=== PATIENT | male | born 1990 | race Caucasian/White ===

== ENCOUNTER 2020-03-03 11:43 | Emergency (ER) | payer SELFPAY ==
[2020-03-03 11:52] VITALS: BP 137/94; PULSE 99; RESP 20; TEMP 36.4; O2SAT 100; BMI 42.5
--- NOTE | 2020-03-03 11:57 | XR_ITS ---
WS: [id number] Left femur and thigh, AP and lateral views, 03/03/2020 Clinical Data: injury Comparison: None. Findings: No fractures or dislocations are seen. The soft tissues are normal. The visualized knee shows no abno rmalities. The left hip is not remarkable. XR/XR femur LT min 2V* [id number] Impression: Negative left femur and thigh.
--- NOTE | 2020-03-03 12:43 | W.ED.EXTPRO ---
HPI - Extremity Problem General: Chief complaint: Extremity Injury, Lower Stated complaint: LEFT LEG INJURY/INNER THIGH Time Seen by Provider: 03/03/20 12:27 Source: patient Mode of arrival: ambulatory Limitations: no limitations History of Present Illness: HPI Narrative: 29 yo male patient presents to ER c/o left thigh and hip pain. States he was using a wood splitter and it hit him in the leg. Pt ambulates but states the pressure hurts his thigh. Pt denies any other pain trauma or injury MD Complaint: extremity pain Onset (ago): hour(s) (1) Pain Consistency: constant Location: left Quality: sharp Radiation: distal Relieving factors: immobilization Exacerbating factors: walking Associated symptoms: Reports no associated symptoms; Deny chest pain, fever(s) or rash Review of Systems Const: Denies: fever(s) or chills Card: Denies: chest pain Resp: Denies: dyspnea GI: Denies: abdominal pain : Denies: flank pain Musc: Reports: extremity pain Skin/Breast: Denies: rash Neuro: Denies: headache(s) or numbness in extremities Psych: Denies: anxiety, suicidal ideation or homicidal ideation Physical Exam Const: COMMON NORMALS: no acute distress, patient oriented x3 and no limitations GENERAL APPEARANCE: cooperative HENMT: COMMON NORMALS: normocephalic and atraumatic HEAD & SCALP: normocephalic and atraumatic Neck/C-Spine: COMMON NORMALS: full ROM Chest: COMMONS NORMALS: normal inspection of the chest Resp: COMMON NORMALS: normal respiratory effort, No retractions and No use of accessory muscles Cardio: COMMON NORMALS: regular rate and regular rhythm RATE: regular rate RHYTHM: regular rhythm : COMMON NORMALS: Yes no CVA tenderness BLADDER/KIDNEY EXAM: Yes no CVA tenderness Back/Pelvis: COMMON NORMALS: no CVA tenderness, thoracic and lumbar spine normal to inspection, no thoracic nor lumbar tenderness and thoraco-lumbar ROM normal Extremity: COMMON NORMALS: normal to inspection and capillary refill normal GENERAL: Yes weight-bearing difficulty LEFT LOWER EXTREMITY: Yes hip joint and Yes upper leg Neuro: COMMON NORMALS: patient oriented x3 Psych: COMMON NORMALS: mental status grossly normal Skin: COMMON NORMALS: no rashes or lesions noted GENERAL SKIN EXAM: no rashes or lesions noted Course Vital Signs: Vital signs: Vital Signs Temperature 97.5 F L 03/03/20 11:52 Pulse Rate 99 03/03/20 11:52 Respiratory Rate 20 H 03/03/20 11:52 Blood Pressure 137/94 03/03/20 11:52 Pulse Oximetry 100 03/03/20 11:52 MDM - Extremity (Nontraumatic) MDM Narrative: Medical decision making narrative: Pt is well appearing non toxic and in no acute distress xray does not reveal any acute or concerning findings. Pt is able to ambulate just hurts to walk he states. Pt is NVI distally. Pt was given Toradol while here. There is no physical trauma noted to the left lower ext. I will send patient home with crutches, return precautions and home care Discharge Plan Discharge Patient Disposition: Home Clinical Impression: Contusion Qualifiers: Encounter type: initial encounter Contusion area: lower leg Laterality: left Qualified Code(s): S80.12XA - Contusion of left lower leg, initial encounter Condition: Stable Discharge Orders: Discharge Order (Routine); Ordered 03/03/20 Ordered By: Shasha Welsh Discharge Diet: Advance as tolerated Discharge Activity: Increase activity as tolerated Activity Restrictions/Additional Instructions: Return to ER with worsening pain, numbness or tingling or any other concerning findings Use crutches as need Rest, ice and elevate extremity Coding Level of Care Code ED Group Burner Machine for Ashtyn Arriaga Exam Comprehensive
[2020-03-03] MEDS: ketorolac 60 mg/2 mL INJ IM (12:52)
== END 2020-03-03 13:01 | disposition home or self-care (01) ==
PROVIDERS: Emergency Provider Registered Nurse
DX: S80.12XA Contusion of left lower leg, initial encounter (principal); W22.8XXA Striking against or struck by other objects, initial encounter
CPT/HCPCS: 12345; 73552; 96372; 99281; 99283; E0114; J1885

== ENCOUNTER → 2022-01-26 14:19 | Outpatient (BNVA) | payer OTHER, SELFPAY | PROVIDERS: Visit Provider Family Medicine Adult Medicine | DX: S99.919A Unspecified injury of unspecified ankle, initial encounter (principal); X50.9XXA Other and unspecified overexertion or strenuous movements or postures, initial encounter; M25.471 Effusion, right ankle; M77.31 Calcaneal spur, right foot | CPT/HCPCS: 73610 ==

== ENCOUNTER 2023-01-30 20:08 | Emergency (ER) | payer BC, MEDICAID, SELFPAY ==
[2023-01-30 20:14] VITALS: BP 168/119; PULSE 84; RESP 21; TEMP 36.6; O2SAT 100; BMI 40.8
[2023-01-30 20:34] LABS: Basophils % 0.3 %; Eosinophils # 0.2 10^3/uL (0.0-0.8); Eosinophils % 1.8 %; Hematocrit 46.3 % (37-53); Lymphocytes # 3.6 10^3/uL (0.8-4.8); Lymphocytes % 31.6 %; Mean Corpuscular HGB Conc 34.3 g/dL (30-55); Mean Corpuscular Hemoglobin 29.2 pg (27-33); Mean Platelet Volume 10.2 fL (7.4-10.4); Monocytes % 8.5 %; Neutrophils # 6.56 10^3/uL (1.8-7.7); Neutrophils % 57.6 %; Nucleated Red Blood Cells % 0 %; Platelet Count 305 10^3/cmm (157-399); Red Blood Count 5.45 10^6/uL (3.85-5.65); Red Cell Distribution Width 12.5 % (12.1-15.1); White Blood Count 11.36 10^3/uL (3.29-11.43)
[2023-01-30 20:53] LABS: Alanine Aminotransferase 31 U/L (0-41); Alkaline Phosphatase 84 U/L (40-130); Anion Gap 15.3 (5-19); Aspartate Amino Transferase 21 U/L (0-40); Blood Urea Nitrogen 19 mg/dL (6-20); Calcium 9.4 mg/dL (8.5-10.5); Carbon Dioxide 27 mmol/L (22-29); Chloride 102 mmol/L (98-107); Globulin 2.6 g/dL (1.3-4.6); Glucose 111 mg/dL (65-115); Lipase 34 U/L (13-60); Osmolality Calculated 293 mOsm/kg (285-295); Potassium 4.3 mmol/L (3.5-5.1); Sodium 140 mmol/L (136-145); Total Bilirubin 0.9 mg/dL (0.15-1.2); Total Protein 7.6 g/dL (6.6-8.7)
--- NOTE | 2023-01-30 21:48 | W.ED.ABDPA2 ---
HPI - Abdominal Pain General: Chief Complaint: Abdominal Pain Stated Complaint: abdomin pain in abdomin/lower back Time Seen by Provider: 01/30/23 21:48 History of Present Illness: 32-year-old male patient comes in today for complaints of right flank pain radiating into the lower abdomen. Patient reports pain started on Friday. Patient denies any fever. Patient reports some nausea without vomiting. Patient appears nontoxic. Patient appears in mild to moderate pain. Associated Symptoms: Reports nausea; Denies constipation, diarrhea, fever(s) and vomiting Review of Systems General: Reports: 10 or more systems reviewed and unremarkable except in HPI and below Const: Denies: fever(s) GI: Reports: abdominal pain and nausea; Denies: vomiting, diarrhea or constipation : Reports: flank pain PFS ED PFSH: Medical History (Updated 01/31/23 @ 00:05 by ANIVAL Yee) Right ankle strain Physical Exam Const: COMMON NORMALS: alert HENMT: COMMON NORMALS: normocephalic HEAD & SCALP: normocephalic Neck/C-Spine: COMMON NORMALS: full ROM Resp: COMMON NORMALS: normal respiratory effort and clear to auscultation bilaterally AUSCULTATION: clear to auscultation bilaterally Cardio: COMMON NORMALS: regular rate and regular rhythm RATE: regular rate RHYTHM: regular rhythm GI: AUSCULTATION: Yes Hypoactive bowel sounds present PALPATION: Yes Tenderness to palpation present (GI) (Generalized) : BLADDER/KIDNEY EXAM: Yes CVA tenderness on the right Back/Pelvis: GENERAL BACK: Yes CVA tenderness Extremity: COMMON NORMALS: normal to inspection Neuro: SENSORIUM/ORIENTATION: Yes alert Skin: COMMON NORMALS: turgor normal GENERAL SKIN EXAM: turgor normal Course Vital Signs: Vital signs: Vital Signs Temperature 97.9 F 01/30/23 20:14 Pulse Rate 84 01/30/23 20:14 Respiratory Rate 21 H 01/30/23 20:14 Blood Pressure 168/119 01/30/23 20:14 Pulse Oximetry 100 01/30/23 20:14 Oxygen Delivery Me thod Room Air 01/30/23 20:14 MDM - Abdominal Pain Medical Decision Making 32-year-old male patient comes in today for complaints of right flank pain radiating into the lower abdomen. On exam patient has some CVA tenderness to percussion of the right flank. Abdomen has some generalized tenderness. Bowel sounds hypoactive. Vital signs are normal. Differential diagnosis includes renal calculi, urinary tract infection, pyelonephritis, appendicitis, gastroenteritis, constipation, gallbladder disease. CBC and CMP were unremarkable except for some mild elevation in creatinine of 1.3. CT of the abdomen and pelvis noted some appendicoliths without surrounding fat stranding to suggest appendicitis. Patient has had no vomiting or fever. Patient's abdominal pain is generalized. At this time I do not believe patient has an appendicitis but reviewed with patient need to return for fever or persistent nausea and vomiting which will be more indicative of an acute appendicitis if this is an early appendicitis. Patient reported understanding of plan. At this time I recommended patient drink plenty of water and fluids and follow-up with primary care or return to the ER for worsening symptoms. Lab Data 01/30/23 20:27 01/30/23 20:27 Labs/Radiology: Radiology Impressions Abdomen/Pelvis CT 01/30/23 21:52 IMPRESSION: 1. No bowel obstruction or inflammatory process associated with the bowel. 2. No free air or significant free fluid in the abdomen or pelvis. 3. The appendix images normally. 4. Chronically enlarged appendix with 2 appendicolith but no adjacent fat stranding to suggest acute appendicitis. 5. No hydronephrosis or renal calculus. No stone in the bladder. Laboratory Results WBC 11.36 10^3/uL (3.29-11.43) 01/30/23 20:27 RBC 5.45 10^6/uL (3.85-5.65) 01/30/23 20: Hgb 15.90 g/dL (11.27-16.99) 01/30/23 20: Hct 46.3 % (37-53) 01/30/23 20: MCV 85.0 fl (82-101) 01/30/23 20: MCH 29.2 pg (27-33) 01/30/23 20: MCHC 34.3 g/dL (30-55) 01/30/23 20: RDW 12.5 % (12.1-15.1) 01/30/23 20: Plt Count 305 10^3/cmm (157-399) 01/30/23 20: MPV 10.2 fL (7.4-10.4) 01/30/23 20: Neut % (Auto) 57.6 % 01/30/23 20: Lymph % (Auto) 31.6 % 01/30/23 20: [place] % (Auto) 8.5 % 01/30/23 20: Eos % (Auto) 1.8 % 01/30/23 20: Baso % (Auto) 0.3 % 01/30/23: Neut # (Auto) 6.56 10^3/uL (1.8-7.7) 01/30/23 20: Lymph # (Auto) 3.6 10^3/uL (0.8-4.8) 01/30/23 20: [place] # (Auto) 1.0 10^3/uL (0.2-0.9) H 01/30/23 20: Eos # (Auto) 0.2 10^3/uL (0.0-0.8) 01/30/23: Baso # (Auto) 0.0 10^3/uL (0.0-0.1) 01/30/23 20: Nucleated RBC % (auto) 0 % 01/30/23: Nucleated RBCs # 0.0 /100WBC 01/30/23 20: Sodium 140 mmol/L (136-145) 01/30/23 20: Potassium 4.3 mmol/L (3.5-5.1) 01/30/23 20: Chloride 102 mmol/L (98-107) 01/30/23: Carbon Dioxide 27 mmol/L (22-29) 01/30/23 20: Anion Gap 15.3 (5-19) 01/30/23 20: BUN 19 mg/dL (6-20) 01/30/23 20: Creatinine 1.3 mg/dL (0.7-1.2) H 01/30/23 20: GFR Calculation 64.0 mL/min (90-130) L 01/30/23 20: Glucose 111 mg/dL (65-115) 01/30/23 20: Calculated Osmolality 293 mOsm/kg (285-295) 01/30/23: Calcium 9.4 mg/dL (8.5-10.5) 01/30/23 20: Total Bilirubin 0.9 mg/dL (0.15-1.2) 01/30/23 20: AST 21 U/L (0-40) 01/30/23 20: ALT 31 U/L (0-41) 01/30/23 20: Alkaline Phosphatase 84 U/L (40-130) 01/30/23 20: Total Protein 7.6 g/dL (6.6-8.7) 01/30/23: Albumin 5.0 g/dL (3.5-5.2) 01/30/23: Globulin 2.6 g/dL (1.3-4.6) 01/30/23: Lipase 34 U/L (13-60) 01/30/23 20: Urine Color Yellow (Yellow) 01/30/23 22:00 Urine Appearance Clear (CLEAR) 01/30/23 22:00 Urine pH 5 (5-7) 01/30/23 22:00 Ur Specific [place] 1.025 (1.005-1.030) 01/30/23 22:00 Urine Protein Trace (Negative) 01/30/23 22:00 Urine Glucose (UA) Norm (Normal) 01/30/23 22:00 Urine Ketones Negative (Negative) 01/30/23 22:00 Urine Blood Neg (Negative) 01/30/23 22:00 Urine Nitrate Negative (Negative) 01/30/23 22:00 Urine Bilirubin Neg (Negative) 01/30/23 22:00 Urine Urobilinogen Neg mg/dL (Negative) 01/30/23 22:00 Ur Leukocyte Esterase Negative (Negative) 01/30/23 22:00 Urine RBC None /hpf (0-2) 01/30/23 22:00 Urine WBC None /hpf (0-5) 01/30/23 22:00 Ur Squamous Epith Cells None /hpf (0-5) 01/30/23 22:00 Amorphous Sediment Not Reportable 01/30/23 22:00 Urine Bacteria Trace /hpf (NONE) 01/30/23 22:00 Urine Mucus 2+ /hpf 01/30/23 22:00 All radiology interpretation(s) finalized by discharge Discharge Plan Discharge Patient Disposition: Home Clinical Impression: Abdominal pain Qualifiers: Abdominal location: generalized Qualified Code(s): R10.84 - Generalized abdominal pain Condition: Stable Prescriptions: No Action celecoxib 200 mg capsule 200 mg PO BID Qty: 30 1RF Discharge Orders: Discharge ED (Routine); Ordered 01/31/23 Ordered By: Jovanni Lemus Referrals: Grabiel Edmond DO [Primary Care Provider] - Discharge Diet: Usual diet Discharge Activity: Increase activity as tolerated Patient Instructions: Abdominal Pain (ED) Activity Restrictions/Additional Instructions: Home and rest. Drink plenty of water and fluids. Use acetaminophen and/or ibuprofen as needed for pain. Use ice or heat for further pain relief. Follow-up with primary care for persistent symptoms. Return to ED for worsening symptoms such as fever greater than 100.4, inability to hold fluids down, blood in vomit or stool. Coding Level of Care Code ED Director Medical Science for Ashtyn Arriaga
--- NOTE | 2023-01-30 21:52 | CTR_ITS ---
PROCEDURE INFORMATION: Exam: CT Abdomen And Pelvis Without Contrast Exam date and time: 01/30/2023 10:14 PM Age: 32 years old Clinical indication: Abdominal pain; Flank; Patient HX: Patient says abd pain started Friday with luq pain but now the pain is anterior umbilical region and it wraps around to right side, PT is clamny and pacing with pain; Additional info: Right flank pain TECHNIQUE: Imaging protocol: Computed tomography of the abdomen and pelvis without contrast. Radiation optimization: All CT scans at this facility use at least one of these dose optimization techniques: automated exposure control; mA and/or kV adjustment per patient size (includes targeted exams where dose is matched to clinical indication); or iterative reconstruction. REPORTING DATA: Count of CT and Cardiac NM exams in prior 12 months: This patient has received 0 known CTs and 0 known cardiac nuclear medicine studies in the 12 months prior to the current study. COMPARISON: CT abdomen pelvis w con* [id number] 03/11/2017 3:16 PM RADIATION DOSE METRICS: Total DLP (mGy-cm): 1412.63 FINDINGS: Liver: Normal. No mass. Gallbladder and bile ducts: Normal. No calcified stones. No ductal dilation. Pancreas: Normal. No ductal dilation. Spleen: Normal. No splenomegaly. Adrenal glands: Normal. No mass. Kidneys and ureters: Normal. No hydronephrosis. Stomach and bowel: Unremarkable. No obstruction. No mucosal thickening. Appendix: The appendix is enlarged measuring up to 12 mm with 2 appendicolith at the base measuring up to 7 mm. However, there is absolutely no fat stranding adjacent to the appendix and this is thought likely to be normal for this patient. Furthermore, reviewing the abdominal CT from 03/11/2017 demonstrates that the patient has a appendix measured up to 11 mm at that time. Intraperitoneal space: Unremarkable. No free air. No significant fluid collection. Vasculature: Unremarkable. No abdominal aortic aneurysm. Lymph nodes: Unremarkable. No enlarged lymph nodes. Urinary bladder: Unremarkable as visualized. Reproductive: Unremarkable as visualized. Bones/joints: Unremarkable. No acute fracture. Soft tissues: Unremarkable. CT/CT kidney stone [id number] IMPRESSION: 1. No bowel obstruction or inflammatory process associated with the bowel. 2. No free air or significant free fluid in the abdomen or pelvis. 3. The appendix images normally. 4. Chronically enlarged appendix with 2 appendicolith but no adjacent fat stranding to suggest acute appendicitis. 5. No hydronephrosis or renal calculus. No stone in the bladder.
[2023-01-30] MEDS: ketorolac 30 mg/mL INJ 15 MG IVP (22:05)
[2023-01-30] MEDS: ondansetron 2 mg/ML SDV 2 mL 4 MG IVP (22:06)
[2023-01-30 22:27] LABS: Add Urine Microscopic? YES; Bilirubin Urine Neg (Negative); Blood Urine Neg (Negative); Glucose Urine UA Norm (Normal); Ketones Urine Negative (Negative); Leukocyte Esterase Urine Negative (Negative); Nitrate Urine Negative (Negative); Protein Urine Trace (Negative); Specific Gravity, Urine 1.025 (1.005-1.030); Urine Appearance Clear (CLEAR); Urine Color Yellow (Yellow); Urobilinogen Urine Neg (Negative); pH Urine 5 (5-7)
[2023-01-30 22:28] LABS: Add Urine Culture? No; Bacteria Urine TRACE /hpf; Mucus Urine 2+ /hpf
[2023-01-31] MEDS: HYDROcodone-acetaminophen 5-325 mg Tablet 1 TAB PO (00:26)
[2023-01-31 00:30] VITALS: BP 143/84; PULSE 76; RESP 18; O2SAT 98
== END 2023-01-31 00:32 | disposition home or self-care (01) ==
PROVIDERS: Emergency Provider Nurse Practitioner Family; PCP Electrodiagnostic Medicine
DX: R10.84 Generalized abdominal pain (principal)
CPT/HCPCS: 36415; 74176; 80053; 81001; 83690; 85025; 96374; 96375; 99285; J1885; J2405

== ENCOUNTER 2023-02-12 12:42 | Emergency (ER) | payer BC, MEDICAID, SELFPAY ==
[2023-02-12 12:47] VITALS: BP 157/91; PULSE 86; RESP 18; TEMP 36.8; O2SAT 99; BMI 41.1
--- NOTE | 2023-02-12 13:06 | W.ED.ABDPA2 ---
HPI - Abdominal Pain General: Chief Complaint: Abdominal Pain Stated Complaint: BC sent for possible appy Time Seen by Provider: 02/12/23 13:00 Source: patient Mode of arrival: ambulatory Limitations: no limitations History of Present Illness: Patient is a 32-year-old male presents to ED today with complaint of abdominal pain. Patient states several weeks ago he began having abdominal pain. He was seen here in the emergency department earlier this month (01/30) and had a CT scan at that time which showed: CT/CT kidney stone [id number] IMPRESSION: 1. ? No bowel obstruction or inflammatory process associated with the bowel. 2. ? No free air or significant free fluid in the abdomen or pelvis. 3. ? The appendix images normally. 4. ? Chronically enlarged appendix with 2 appendicolith but no adjacent fat stranding to suggest acute appendicitis. 5. ? No hydronephrosis or renal calculus. No stone in the bladder. Patient states since that time he has continued to have waxing and waning abdominal pains (always present just with exacerbations of pain). Feels like pain moves around his abdomen. He reports nausea worse with eating. He states bowel movements have alternated between constipation and diarrhea. No fevers. He reportedly was seen at [facility] earlier today and referred to the emergency department with concerns for appendicitis. MD elicited complaint: abdominal pain Pertinent past history: none Onset (ago): week(s) Pain Consistency: intermittent Location: Periumbilical and RLQ Severity: moderate Quality: sharp Radiation: none Migration to: no migration Exacerbating factors: eating (makes nausea worse-pain unaffected ) Relieving factors: nothing Associated Symptoms: Reports constipation, diarrhea and nausea; Denies chills, dysuria, fever(s), hematochezia, hematemesis, melena and vomiting Review of Systems Const: Denies: fever(s), chills, body aches, fatigue or malaise Card: Denies: chest pain Resp: Denies: dyspnea GI: Reports: abdominal pain, nausea, diarrhea and constipation; Denies: vomiting, hematemesis, rectal pain, hematochezia or melena : Denies: flank pain, difficulty urinating, dysuria, urinary frequency, urinary urgency or urinary hesitancy Musc: Denies: neck pain, back pain, extremity pain or joint pain Skin/Breast: Denies: rash Neuro: Denies: headache(s), numbness in extremities, sensory changes or dizziness PFSH ED PFSH: Medical History Right ankle strain Physical Exam Const: COMMON NORMALS: no acute distress, patient oriented x3, no limitations and alert GENERAL APPEARANCE: cooperative NUTRITIONAL APPEARANCE: obese (BMI of 41) ORIENTATION/CONSCIOUSNESS: Yes awake, Yes oriented to person, Yes oriented to place and Yes oriented to time Eye: COMMON NORMALS: no scleral icterus Resp: COMMON NORMALS: normal respiratory effort and clear to auscultation bilaterally AUSCULTATION: clear to auscultation bilaterally Cardio: COMMON NORMALS: regular rate and regular rhythm RATE: regular rate RHYTHM: regular rhythm GI: COMMON NORMALS: Normal to inspection, nondistended, normoactive bowel sounds present, Soft to palpation and no masses INSPECTION: Yes normal to inspection AUSCULTATION: Yes normoactive bowel sounds PALPATION: Yes Soft to palpation, Yes Tenderness to palpation present (GI) (throughout abdomen but max tenderness to periumbilical/RLQ), No Guarding due to palpation present (GI) and No Rigid due to palpation : COMMON NORMALS: Yes no CVA tenderness BLADDER/KIDNEY EXAM: Yes no CVA tenderness Back/Pelvis: COMMON NORMALS: no CVA tenderness Extremity: COMMON NORMALS: normal to inspection GENERAL: Yes normal exam except as noted Neuro: COMMON NORMALS: patient oriented x3, moves all extremities, no focal motor deficits and no sensory deficits noted SENSORIUM/ORIENTATION: Yes alert, Yes oriented to person, Yes oriented to place and Yes oriented to time Skin: COMMON NORMALS: no rashes or lesions noted GENERAL SKIN EXAM: no rashes or lesions noted Course Vital Signs: Vital signs: Vital Signs Temperature 98.3 F 02/12/23 12:47 Pulse Rate 86 02/12/23 12:47 Respiratory Rate 18 02/12/23 13:28 Blood Pressure 129/89 02/12/23 13:24 Pulse Oximetry 99 02/12/23 12:47 Oxygen Delivery Me thod Room Air 02/12/23 12:47 MDM - Abdominal Pain Medical Decision Making Patient CT scan showing a normal appendix. Small appendicoliths are reidentified. There still was no adjacent inflammation to suggest appendicitis. Radiologist stated appendix is less distended as compared to 01/30. Remainder of CT scan was essentially unremarkable. I do not have a clear etiology into patient's symptoms at this time. He has follow-up with primary care next week. We will also place referral with general surgery for further evaluation. We will give him pain/nausea medications he can use in the interim Lab Data 02/12/23 13:18 02/12/23 13:18 Labs/Radiology: Laboratory Results WBC 8.71 10^3/uL (3.29-11.43) 02/12/23 13:18 RBC 5.15 10^6/uL (3.85-5.65) 02/12/23 13:18 Hgb 15.30 g/dL (11.27-16.99) 02/12/23 13:18 Hct 44.9 % (37-53) 02/12/23 13:18 MCV 87.2 fl (82-101) 02/12/23 13:18 MCH 29.7 pg (27-33) 02/12/23 13:18 MCHC 34.1 g/dL (30-55) 02/12/23 13:18 RDW 12.7 % (12.1-15.1) 02/12/23 13:18 Plt Count 290 10^3/cmm (157-399) 02/12/23 13:18 MPV 10.1 fL (7.4-10.4) 02/12/23 13:18 Neut % (Auto) 53.1 % 02/12/23 13:18 Lymph % (Auto) 36.6 % 02/12/23 13:18 [place] % (Auto) 8.4 % 02/12/23 13:18 Eos % (Auto) 1.4 % 02/12/23 13:18 Baso % (Auto) 0.3 % 02/12/23 13:18 Neut # (Auto) 4.62 10^3/uL (1.8-7.7) 02/12/23 13:18 Lymph # (Auto) 3.2 10^3/uL (0.8-4.8) 02/12/23 13:18 [place] # (Auto) 0.7 10^3/uL (0.2-0.9) 02/12/23 13:18 Eos # (Auto) 0.1 10^3/uL (0.0-0.8) 02/12/23 13:18 Baso # (Auto) 0.0 10^3/uL (0.0-0.1) 02/12/23 13:18 Nucleated RBC % (auto) 0 % 02/12/23 13:18 Nucleated RBCs # 0.0 /100WBC 02/12/23 13:18 Sodium 142 mmol/L (136-145) 02/12/23 13:18 Potassium 3.9 mmol/L (3.5-5.1) 02/12/23 13:18 Chloride 104 mmol/L (98-107) 02/12/23 13:18 Carbon Dioxide 26 mmol/L (22-29) 02/12/23 13:18 Anion Gap 15.9 (5-19) 02/12/23 13:18 BUN 13 mg/dL (6-20) 02/12/23 13:18 Creatinine 0.9 mg/dL (0.7-1.2) 02/12/23 13:18 GFR Calculation 97.8 mL/min (90-130) 02/12/23 13:18 Glucose 93 mg/dL (65-115) 02/12/23 13:18 Calculated Osmolality 294 mOsm/kg (285-295) 02/12/23 13:18 Calcium 9.3 mg/dL (8.5-10.5) 02/12/23 13:18 Total Bilirubin 0.5 mg/dL (0.15-1.2) 02/12/23 13:18 AST 16 U/L (0-40) 02/12/23 13:18 ALT 21 U/L (0-41) 02/12/23 13:18 Alkaline Phosphatase 78 U/L (40-130) 02/12/23 13:18 Total Protein 7.1 g/dL (6.6-8.7) 02/12/23 13:18 Albumin 5.0 g/dL (3.5-5.2) 02/12/23 13:18 Globulin 2.1 g/dL (1.3-4.6) 02/12/23 13:18 Lipase 29 U/L (13-60) 02/12/23 13:18 All radiology interpretation(s) finalized by discharge Discharge Plan Discharge Patient Disposition: Home Clinical Impression: Abdominal pain of unknown cause Condition: Stable Prescriptions: New hydrocodone-acetaminophen 5-325 mg tablet 1 tab PO Q6H PRN (Reason: pain) Qty: 14 0RF ondansetron 4 mg tablet,disintegrating 4 mg PO Q8H PRN (Reason: nausea and vomiting) Qty: 14 0RF No Action celecoxib 200 mg capsule 200 mg PO BID Qty: 30 1RF Discharge Orders: Discharge ED (Routine); Ordered 02/12/23 Ordered By: Verna Garcia Referrals: Grabiel Edmond DO [Primary Care Provider] - Patient Instructions: Abdominal Pain (ED), Opioid Safety, Pain Management Activity Restrictions/Additional Instructions: As we discussed your labs or CT scan did not show a clear etiology for your abdominal discomfort. Please follow-up with your primary care provider at your scheduled appointment. I have placed a referral with case management to try to get you set up with general surgery for further evaluation. I have written you for a small amount of pain/nausea medications that you may take if needed. As we discussed please return to the emergency department for worsening or severe abdominal pains, repetitive episodes of vomiting or diarrhea, any blood in your vomit or stools, fevers greater than 100.4, generally feeling worse or unwell, or any other concerns you may have. Coding Level of Care Code ED Art Framing Manager for Ashtyn Arriaga
--- NOTE | 2023-02-12 13:12 | CT_ITS ---
WS: [id number] CT ABDOMEN AND PELVIS WITH CONTRAST HISTORY: diffuse ab pain, mainly RLQ TECHNIQUE: Imaging performed of the abdomen and pelvis with IV contrast. Single phase imaging of the abdomen. Coronal and sagittal reformats are submitted. All CT scans at [facility] use at [facility] one of these dose optimization techniques: automated exposure control; mA and/or kV adjustment per patient size (includes targeted exams where dose is matched to clinical indication); or iterative re construction. IV CONTRAST: Omnipaque 350; 100 mL IV. Oral contrast: No DLP: 1294.43 mGy.cm COMPARISON: 01/30/2023 Lower thorax: Lung bases are clear. Heart is normal size. No hiatal hernia. Liver/biliary system: Normal size with no intrahepatic dilatation. Gallbladder: Normal. No gallstones or wall thickening. No pericholecystic fluid. Pancreas: Normal size pancreas and pancreatic duct. No adjacent inflammation. Spleen: Normal size spleen. No mass or infarct. Adrenal glands: Normal. Right kidney: Normal. Left kidney: Normal. Aorta: Normal. Lymphadenopathy: There are few very small central mesenteric lymph nodes. Free fluid: None. GI tract: Unremarkable. Normal appendix. No obstruction. Abdominal wall: Unremarkable abdominal wall. No hernia. Pelvis: No free fluid or adenopathy within the pelvis. Bones: Unremarkable. IMPRESSION: 1. Normal appendix. Small appendicoliths are reidentified. There is no adjacent inflammation or appe ndicitis at this time. Appendix is less distended as compared to 01/30/2023. 2. No renal obstruction. 3. No colitis or GI tract obstruction. 4. There are very few small central mesenteric lymph nodes that were present also on the prior study from 01/30/2023 and 03/11/2017.
[2023-02-12] MEDS: iohexol 350 mg/mL 500 mL Btl (per mL) IV (13:22)
[2023-02-12 13:24] VITALS: BP 129/89
[2023-02-12 13:25] LABS: Basophils % 0.3 %; Eosinophils # 0.1 10^3/uL (0.0-0.8); Eosinophils % 1.4 %; Hematocrit 44.9 % (37-53); Lymphocytes # 3.2 10^3/uL (0.8-4.8); Lymphocytes % 36.6 %; Mean Corpuscular HGB Conc 34.1 g/dL (30-55); Mean Corpuscular Hemoglobin 29.7 pg (27-33); Mean Corpuscular Volume 87.2 fl (82-101); Mean Platelet Volume 10.1 fL (7.4-10.4); Monocytes # 0.7 10^3/uL (0.2-0.9); Monocytes % 8.4 %; Neutrophils # 4.62 10^3/uL (1.8-7.7); Neutrophils % 53.1 %; Nucleated Red Blood Cells % 0 %; Platelet Count 290 10^3/cmm (157-399); Red Blood Count 5.15 10^6/uL (3.85-5.65); Red Cell Distribution Width 12.7 % (12.1-15.1); White Blood Count 8.71 10^3/uL (3.29-11.43)
[2023-02-12 13:28] VITALS: RESP 18
[2023-02-12] MEDS: sodium chloride 0.9% 1,000 ML 999 ML IV (13:28)
[2023-02-12] MEDS: morphine 4 mg/mL SDV 1 mL IVP (13:28)
[2023-02-12] MEDS: ondansetron 2 mg/ML SDV 2 mL 4 MG IVP (13:28)
[2023-02-12 14:02] LABS: Alanine Aminotransferase 21 U/L (0-41); Alkaline Phosphatase 78 U/L (40-130); Anion Gap 15.9 (5-19); Aspartate Amino Transferase 16 U/L (0-40); Blood Urea Nitrogen 13 mg/dL (6-20); Calcium 9.3 mg/dL (8.5-10.5); Carbon Dioxide 26 mmol/L (22-29); Chloride 104 mmol/L (98-107); Globulin 2.1 g/dL (1.3-4.6); Glomerular Filtration Rate 97.8 mL/min (90-130); Glucose 93 mg/dL (65-115); Lipase 29 U/L (13-60); Osmolality Calculated 294 mOsm/kg (285-295); Potassium 3.9 mmol/L (3.5-5.1); Sodium 142 mmol/L (136-145); Total Bilirubin 0.5 mg/dL (0.15-1.2); Total Protein 7.1 g/dL (6.6-8.7)
[2023-02-12 14:36] VITALS: BP 156/90; RESP 18; TEMP 36.6; O2SAT 98
--- NOTE | 2023-02-12 14:39 | DCPLANNER ---
Message sent to Gen Surg for follow up - Worsening Abdominal pain, N/V
== END 2023-02-12 14:43 | disposition home or self-care (01) ==
PROVIDERS: Emergency Medicine; Emergency Provider Physician Assistant; PCP Electrodiagnostic Medicine
DX: R10.31 Right lower quadrant pain (principal)
CPT/HCPCS: 74177; 80053; 83690; 85025; 96374; 96375; 99285; J2270; J2405; J7030

== ENCOUNTER 2023-02-15 13:42 | Emergency (ER) | payer BC, MEDICAID, SELFPAY ==
[2023-02-15 14:05] VITALS: BP 145/91; PULSE 89; RESP 18; TEMP 36.9; O2SAT 97; BMI 5916.9
[2023-02-15 14:07] VITALS: BP 145/91; PULSE 90; RESP 18; O2SAT 100
--- NOTE | 2023-02-15 14:17 | W.ED.ABDPA2 ---
HPI - Abdominal Pain General: Chief Complaint: Abdominal Pain Stated Complaint: abd pain Time Seen by Provider: 02/15/23 14:16 History of Present Illness: 32-year-old male presents to the emergency department with complaints of right upper quadrant abdominal pain. He states he was seen by the general surgeon Dr. Pepper on 02/13/23 and was advised that he needed to receive an ultrasound to rule out cholecystitis. The patient since that time is stated that this morning he started having 10 out of 10 pain that is worse after he eats. He states he has been taking the medications that were prescribed to him by Dr. Pepper but could not tolerate the pain anymore and has also had several episodes of nausea and vomiting. He states the pain is a intermittent pain that is worse after he eats and that has not changed over the previous 1 month. Associated Symptoms: Reports nausea and vomiting Review of Systems General: Reports: 10 or more systems reviewed and unremarkable except in HPI and below GI: Reports: abdominal pain, nausea and vomiting [facility] ED PFSH: Medical History Right ankle strain Social History Smoking and tobacco/nicotine status: light tobacco/nicotine user smokeless tobacco Quit status (tobacco/nicotine): has quit using Physical Exam Const: COMMON NORMALS: no acute distress, average body habitus, patient oriented x3 and alert HENMT: COMMON NORMALS: normocephalic, Normal nasal mucous membranes and turbinates present and moist oral mucous membranes HEAD & SCALP: normocephalic NOSE: Normal nasal mucous membranes and turbinates present Eye: COMMON NORMALS: Equal, round and reactive pupils present and EOMs intact bilaterally PUPIL: Yes Equal, round and reactive pupils present Neck/C-Spine: COMMON NORMALS: full ROM, no lymphadenopathy and supple Resp: COMMON NORMALS: normal respiratory effort and clear to auscultation bilaterally AUSCULTATION: clear to auscultation bilaterally Cardio: COMMON NORMALS: regular rate, regular rhythm, S1 normal heart sound present, S2 normal heart sound present and Peripheral pulses 2+ throughout RATE: regular rate RHYTHM: regular rhythm HEART SOUNDS: S1 normal heart sound present and S2 normal heart sound present PERIPHERAL PULSES: Peripheral pulses 2+ throughout GI: COMMON NORMALS: Soft to palpation INSPECTION: Yes normal to inspection, No Abdominal wall edema and No Fluid wave present AUSCULTATION: Yes normoactive bowel sounds PALPATION: Yes Soft to palpation and Yes Tenderness to palpation present (GI) Details: RUQ PERCUSSION: no fluid wave : COMMON NORMALS: Yes no CVA tenderness BLADDER/KIDNEY EXAM: Yes no CVA tenderness Back/Pelvis: COMMON NORMALS: no CVA tenderness and thoracic and lumbar spine normal to inspection Extremity: COMMON NORMALS: normal to inspection, full ROM and capillary refill normal Neuro: COMMON NORMALS: patient oriented x3 and moves all extremities SENSORIUM/ORIENTATION: Yes alert Psych: COMMON NORMALS: mental status grossly normal, Normal thought process present and cooperative THOUGHT PROCESS: Normal thought process present Skin: COMMON NORMALS: no rashes or lesions noted GENERAL SKIN EXAM: no rashes or lesions noted Course Vital Signs: Vital signs: Vital Signs Temperature 98 F 02/15/23 16:04 Pulse Rate 90 02/15/23 16:04 Respiratory Rate 18 02/15/23 16:04 Blood Pressure 148/76 02/15/23 16:04 Pulse Oximetry 100 02/15/23 14:07 Oxygen Delivery Me thod Room Air 02/15/23 14:07 MDM - Abdominal Pain Medical Decision Making Physical exam completed and documented, I reviewed Dr. Pepper's previous note and his plan of care. Given the patient's presentation with worsening right upper quadrant abdominal pain I will repeat the patient's laboratory evaluation to include a CBC, CMP and a lipase as well as order the planned ultrasound and will treat accordingly. Medical Records I reviewed the patient's medical records. Lab Data I reviewed the patient's lab results. 02/15/23 15:22 02/15/23 15:22 Labs/Radiology: Radiology Impressions Gallbladder Ultrasound 02/15/23 14:29 IMPRESSION: 1. Normal gallbladder. No biliary dilation. 2. Hepatic steatosis. Laboratory Results WBC 10.37 10^3/uL (3.29-11.43) 02/15/23 15:22 RBC 4.96 10^6/uL (3.85-5.65) 02/15/23 15:22 Hgb 14.70 g/dL (11.27-16.99) 02/15/23 15:22 Hct 43.7 % (37-53) 02/15/23 15:22 MCV 88.1 fl (82-101) 02/15/23 15: MCH 29.6 pg (27-33) 02/15/23 15: MCHC 33.6 g/dL (30-55) 02/15/23 15:22 RDW 12.4 % (12.1-15.1) 02/15/23 15:22 Plt Count 293 10^3/cmm (157-399) 02/15/23 15: MPV 10.2 fL (7.4-10.4) 02/15/23 15:22 Neut % (Auto) 65.1 % 02/15/23 15:22 Lymph % (Auto) 28.5 % 02/15/23 15:22 [place] % (Auto) 5.4 % 02/15/23 15: Eos % (Auto) 0.6 % 02/15/23 15: Baso % (Auto) 0.2 % 02/15/23 15: Neut # (Auto) 6.75 10^3/uL (1.8-7.7) 02/15/23 15:22 Lymph # (Auto) 3.0 10^3/uL (0.8-4.8) 02/15/23 15:22 [place] # (Auto) 0.6 10^3/uL (0.2-0.9) 02/15/23 15:22 Eos # (Auto) 0.1 10^3/uL (0.0-0.8) 02/15/23 15:22 Baso # (Auto) 0.0 10^3/uL (0.0-0.1) 02/15/23 15: Nucleated RBC % (auto) 0 % 02/15/23 15: Nucleated RBCs # 0.0 /100WBC 02/15/23 15:22 Sodium 140 mmol/L (136-145) 02/15/23 15:22 Potassium 3.7 mmol/L (3.5-5.1) 02/15/23 15:22 Chloride 103 mmol/L (98-107) 02/15/23 15:22 Carbon Dioxide 28 mmol/L (22-29) 02/15/23 15:22 Anion Gap 12.7 (5-19) 02/15/23 15:22 BUN 12 mg/dL (6-20) 02/15/23 15:22 Creatinine 1.1 mg/dL (0.7-1.2) 02/15/23 15:22 GFR Calculation 77.6 mL/min (90-130) L 02/15/23 15:22 Glucose 92 mg/dL (65-115) 02/15/23 15:22 Calculated Osmolality 289 mOsm/kg (285-295) 02/15/23 15:22 Calcium 9.0 mg/dL (8.5-10.5) 02/15/23 15:22 Total Bilirubin 0.7 mg/dL (0.15-1.2) 02/15/23 15:22 AST 13 U/L (0-40) 02/15/23 15:22 ALT 20 U/L (0-41) 02/15/23 15:22 Alkaline Phosphatase 77 U/L (40-130) 02/15/23 15:22 Total Protein 6.8 g/dL (6.6-8.7) 02/15/23 15:22 Albumin 4.5 g/dL (3.5-5.2) 02/15/23 15:22 Globulin 2.3 g/dL (1.3-4.6) 02/15/23 15:22 Lipase 28 U/L (13-60) 02/15/23 15:22 All radiology interpretation(s) finalized by discharge ED provider radiology interpretation(s): US ABD: FINDINGS: Liver: There is diffuse increased echogenicity of the liver parenchyma and attenuation of sound in the deep portions of the liver obscuring fine hepatic detail, consistent with fatty infiltration. No focal liver abnormality is visible. Gallbladder: The gallbladder is normal. There are no stones. There is no wall thickening or pericholecystic fluid. Information regarding sonographic Carl sign was not provided. Biliary ducts: The common bile duct is nondilated measuring 3 mm. Pancreas: There is limited evaluation of the pancreas due to overlying bowel gas. Right kidney: The right kidney is unremarkable. Portal venous: The main portal vein is patent. US/US gall bladder [id number] IMPRESSION: 1. ? Normal gallbladder. No biliary dilation. 2. ? Hepatic steatosis. Discharge Plan Discharge Patient Disposition: Home Clinical Impression: Abdominal pain of unknown cause Condition: Stable Prescriptions: No Action celecoxib 200 mg capsule 200 mg PO BID Qty: 30 1RF lamotrigine [Lamictal] 200 mg tablet 200 mg PO DAILY amoxicillin 875 mg tablet 875 mg PO Q12H 10 Days Qty: 20 0RF pantoprazole [Protonix] 40 mg tablet,delayed release (DR/EC) 40 mg PO BID 42 Days Qty: 84 1RF hydrocodone-acetaminophen 5-325 mg tablet 1 tab PO Q6H PRN (Reason: pain) Qty: 14 0RF ondansetron 4 mg tablet,disintegrating 4 mg PO Q8H PRN (Reason: nausea and vomiting) Qty: 14 0RF Discharge Orders: Discharge ED (Routine); Ordered 02/15/23 Ordered By: Yakov Lee Referrals: Grabiel Edmond DO [Primary Care Provider] - Discharge Diet: Advance as tolerated Discharge Activity: Resume usual activity Patient Instructions: Abdominal Pain (ED) Coding Level of Care Code ED 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
--- NOTE | 2023-02-15 14:29 | USR_ITS ---
PROCEDURE INFORMATION: Exam: US Abdomen, Limited; Right Upper Quadrant Exam date and time: 02/15/2023 2:45 PM Age: 32 years old Clinical indication: Abdominal pain; Generalized; Additional info: Ruq abd pain TECHNIQUE: Imaging protocol: Real time ultrasound of the abdomen with image documentation. Limited exam focused on the right upper quadrant. COMPARISON: CT abdomen pelvis w con* [id number] 02/12/2023 1:36 PM FINDINGS: Liver: There is diffuse increased echogenicity of the liver parenchyma and attenuation of sound in the deep portions of the liver obscuring fine hepatic detail, consistent with fatty infiltration. No focal liver abnormality is visible. Gallbladder: The gallbladder is normal. There are no stones. There is no wall thickening or pericholecystic fluid. Information regarding sonographic Carl sign was not provided. Biliary ducts: The common bile duct is nondilated measuring 3 mm. Pancreas: There is limited evaluation of the pancreas due to overlying bowel gas. Right kidney: The right kidney is unremarkable. Portal venous: The main portal vein is patent. US/US gall bladder [id number] IMPRESSION: 1. Normal gallbladder. No biliary dilation. 2. Hepatic steatosis.
[2023-02-15 15:27] LABS: Basophils % 0.2 %; Eosinophils # 0.1 10^3/uL (0.0-0.8); Eosinophils % 0.6 %; Hematocrit 43.7 % (37-53); Lymphocytes % 28.5 %; Mean Corpuscular HGB Conc 33.6 g/dL (30-55); Mean Corpuscular Hemoglobin 29.6 pg (27-33); Mean Corpuscular Volume 88.1 fl (82-101); Mean Platelet Volume 10.2 fL (7.4-10.4); Monocytes # 0.6 10^3/uL (0.2-0.9); Monocytes % 5.4 %; Neutrophils # 6.75 10^3/uL (1.8-7.7); Neutrophils % 65.1 %; Nucleated Red Blood Cells % 0 %; Platelet Count 293 10^3/cmm (157-399); Red Blood Count 4.96 10^6/uL (3.85-5.65); Red Cell Distribution Width 12.4 % (12.1-15.1); White Blood Count 10.37 10^3/uL (3.29-11.43)
[2023-02-15 15:55] LABS: Alanine Aminotransferase 20 U/L (0-41); Albumin Level 4.5 g/dL (3.5-5.2); Alkaline Phosphatase 77 U/L (40-130); Anion Gap 12.7 (5-19); Aspartate Amino Transferase 13 U/L (0-40); Blood Urea Nitrogen 12 mg/dL (6-20); Carbon Dioxide 28 mmol/L (22-29); Chloride 103 mmol/L (98-107); Globulin 2.3 g/dL (1.3-4.6); Glomerular Filtration Rate 77.6 mL/min (90-130); Glucose 92 mg/dL (65-115); Lipase 28 U/L (13-60); Osmolality Calculated 289 mOsm/kg (285-295); Potassium 3.7 mmol/L (3.5-5.1); Sodium 140 mmol/L (136-145); Total Bilirubin 0.7 mg/dL (0.15-1.2); Total Protein 6.8 g/dL (6.6-8.7)
[2023-02-15 16:04] VITALS: BP 148/76; PULSE 90; RESP 18; TEMP 36.6
== END 2023-02-15 16:06 | disposition home or self-care (01) ==
PROVIDERS: Emergency Provider Internal Medicine; PCP Electrodiagnostic Medicine
DX: R10.11 Right upper quadrant pain (principal); F17.220 Nicotine dependence, chewing tobacco, uncomplicated
CPT/HCPCS: 36415; 76705; 80053; 83690; 85025; 99284

== ENCOUNTER 2023-11-07 18:35 | Emergency (ER) | payer BC, MEDICAID, SELFPAY ==
--- NOTE | 2023-11-07 18:36 | ECG_ITS ---
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 Measurements Intervals [place] Rate: 88 P: 35 ME: 150 QRS: 6 QRSD: 95 T: 32 QT: 332 QTc: 402 Interpretive Statements SINUS RHYTHM No previous ECG available for comparison Electronically Signed On 11-07-2023 22:41:39 CDT by Maxi Skelton M.D. [id number] f
[2023-11-07 18:37] VITALS: BP 167/107; PULSE 92; RESP 16; TEMP 36.7; O2SAT 98
--- NOTE | 2023-11-07 18:49 | XRR_ITS ---
PROCEDURE INFORMATION: Exam: XR Chest Exam date and time: 11/07/2023 6:57 PM Age: 33 years old Clinical indication: Pain; Chest pressure; Additional info: Chest pain TECHNIQUE: Imaging protocol: Radiologic exam of the chest. Views: 1 view. COMPARISON: CT abdomen pelvis w con* [id number] 02/12/2023 1:36 PM FINDINGS: Lungs: Unremarkable. No consolidation. Pleural spaces: Unremarkable. No pleural effusion. No pneumothorax. Heart/Mediastinum: Unremarkable. No cardiomegaly. Bones/joints: Unremarkable. XR/XR chest 1V portable [id number] IMPRESSION: No acute findings.
--- NOTE | 2023-11-07 19:04 | W.ED.GENADLT ---
HPI - General Adult General: Chief complaint: Chest Pain Stated complaint: CHest pain dizzy left arm stabing pain head Time Seen by Provider: 11/07/23 18:53 Source: patient Mode of arrival: ambulatory Limitations: no limitations History of Present Illness: Patient is a 33-year-old male who presents to the ED today with a complaint of blood pressure issues over the past few weeks. Patient states he will get intermittent spikes in his blood pressure with systolics in the 150s. He states he occasionally will get some numbness and tingling in his face, hands, and feet. He has intermittently felt slightly lightheaded with some mild chest discomforts as well. Patient states with rest the blood pressure will usually come down to his normal range which is systolics in the 130s. Patient has no history of hypertension. Onset (ago): week(s) Severity: mild Pain Consistency: intermittent Relieving factors: rest Associated symptoms: Reports chest pain; Deny confusion, dyspnea, headache(s), malaise, nausea, rash, palpitations, syncope or vomiting Treatments prior to arrival: none Review of Systems Const: Denies: fever(s), chills, body aches, fatigue or malaise Eyes: Denies: change in vision or blurry vision ENMT: Denies: nasal discharge, nasal congestion or sinus pain Card: Reports: chest pain and lightheadedness; Denies: palpitations, irregular heart rhythm, edema, syncope, pre-syncope, dyspnea on exertion, orthopnea, leg pain with exertion or acrocyanosis Resp: Denies: dyspnea, productive cough or pain on inspiration GI: Denies: abdominal pain, nausea, vomiting, heartburn or diarrhea : Denies: flank pain, difficulty urinating or dysuria Musc: Denies: neck pain, back pain, extremity pain, extremity swelling or joint pain Skin/Breast: Denies: rash Neuro: Reports: numbness in extremities, sensory changes and dizziness; Denies: headache(s), weakness in extremities or confusion PFS ED PFSH: Medical History Right ankle strain Social History Smoking and tobacco/nicotine status: light tobacco/nicotine user smokeless tobacco Quit status (tobacco/nicotine): has quit using Physical Exam Const: COMMON NORMALS: no acute distress, patient oriented x3, no limitations, alert and well nourished GENERAL APPEARANCE: cooperative and anxious NUTRITIONAL APPEARANCE: overweight ORIENTATION/CONSCIOUSNESS: Yes awake, Yes oriented to person, Yes oriented to place and Yes oriented to time HENMT: COMMON NORMALS: normocephalic and atraumatic HEAD & SCALP: normal to inspection, normocephalic and atraumatic Neck/C-Spine: COMMON NORMALS: full ROM, no lymphadenopathy, supple, no meningeal signs and no JVD Chest: COMMONS NORMALS: normal inspection of the chest Resp: COMMON NORMALS: normal respiratory effort and clear to auscultation bilaterally AUSCULTATION: clear to auscultation bilaterally Cardio: COMMON NORMALS: no JVD, regular rate and regular rhythm RATE: regular rate RHYTHM: regular rhythm GI: COMMON NORMALS: Normal to inspection, nondistended, normoactive bowel sounds present, Soft to palpation, non-tender, No hepatosplenomegaly present and no masses PALPATION: Yes Soft to palpation and Yes No hepatosplenomegaly present : COMMON NORMALS: Yes no CVA tenderness BLADDER/KIDNEY EXAM: Yes no CVA tenderness Back/Pelvis: COMMON NORMALS: no CVA tenderness and thoracic and lumbar spine normal to inspection Extremity: COMMON NORMALS: normal to inspection, no clubbing, cyanosis or edema, no calf tenderness and no pedal edema Neuro: COMMON NORMALS: patient oriented x3, moves all extremities, no focal motor deficits, no sensory deficits noted and gait normal SENSORIUM/ORIENTATION: Yes alert, Yes oriented to person, Yes oriented to place and Yes oriented to time MENINGEAL SIGNS: Yes no meningeal signs Skin: COMMON NORMALS: no rashes or lesions noted GENERAL SKIN EXAM: no rashes or lesions noted Course Vital Signs: Vital signs: Vital Signs Temperature 98.1 F 11/07/23 18:37 Pulse Rate 80 11/07/23 21:00 Respiratory Rate 16 11/07/23 21:00 Blood Pressure 132/78 11/07/23 21:00 Pulse Oximetry 97 11/07/23 21:00 Oxygen Delivery Me thod Room Air 11/07/23 21:00 [facility] - General Adult Medical Decision Making Patient's ED workup including baseline and 2-hour troponin both of which are unremarkable. His EKGs are nonischemic. CXR showing no acute findings. Remainder of blood work is unremarkable. On repeat examination blood pressure is now 120s/80s without any type of intervention here. Recommend to keep a blood pressure log at home and follow-up with primary care. He already has a scheduled appointment in 2 weeks. Lab Data 11/07/23 19:11 11/07/23 19:11 Radiology Impressions Chest X-Ray 11/07/23 18:49 IMPRESSION: No acute findings. Laboratory Results WBC 9.34 10^3/uL (3.29-11.43) 11/07/23 19:11 RBC 5.21 10^6/uL (3.85-5.65) 11/07/23 19:11 Hgb 15.20 g/dL (11.27-16.99) 11/07/23 19:11 Hct 44.2 % (37-53) 11/07/23 19:11 MCV 84.8 fl (82-101) 11/07/23 19:11 MCH 29.2 pg (27-33) 11/07/23 19:11 MCHC 34.4 g/dL (30-55) 11/07/23 19:11 RDW 12.3 % (12.1-15.1) 11/07/23 19:11 Plt Count 310 10^3/cmm (157-399) 11/07/23 19:11 MPV 10.3 fL (7.4-10.4) 11/07/23 19:11 Neut % (Auto) 60.5 % 11/07/23 19:11 Lymph % (Auto) 31.5 % 11/07/23 19:11 [place] % (Auto) 6.6 % 11/07/23 19:11 Eos % (Auto) 1.1 % 11/07/23 19:11 Baso % (Auto) 0.2 % 11/07/23 19:11 Neut # (Auto) 5.65 10^3/uL (1.8-7.7) 11/07/23 19:11 Lymph # (Auto) 2.9 10^3/uL (0.8-4.8) 11/07/23 19:11 [place] # (Auto) 0.6 10^3/uL (0.2-0.9) 11/07/23 19:11 Eos # (Auto) 0.1 10^3/uL (0.0-0.8) 11/07/23 19:11 Baso # (Auto) 0.0 10^3/uL (0.0-0.1) 11/07/23 19:11 Nucleated RBC % (auto) 0 % 11/07/23 19:11 Nucleated RBCs # 0.0 /100WBC 11/07/23 19:11 Sodium 139 mmol/L (136-145) 11/07/23 19:11 Potassium 3.8 mmol/L (3.5-5.1) 11/07/23 19:11 Chloride 104 mmol/L (98-107) 11/07/23 19:11 Carbon Dioxide 26 mmol/L (22-29) 11/07/23 19:11 Anion Gap 12.8 (5-19) 11/07/23 19:11 BUN 13 mg/dL (6-20) 11/07/23 19:11 Creatinine 1.2 mg/dL (0.7-1.2) 11/07/23 19:11 GFR Calculation 69.7 mL/min (90-130) L 11/07/23 19:11 Glucose 91 mg/dL (65-115) 11/07/23 19:11 Calculated Osmolality 288 mOsm/kg (285-295) 11/07/23 19:11 Calcium 9.1 mg/dL (8.5-10.5) 11/07/23 19:11 Total Bilirubin 0.5 mg/dL (0.15-1.2) 11/07/23 19:11 AST 12 U/L (0-40) 11/07/23 19:11 ALT 19 U/L (0-41) 11/07/23 19:11 Alkaline Phosphatase 76 U/L (40-130) 11/07/23 19:11 Troponin T Baseline < 6 ng/L (0-15) 11/07/23 19:11 Troponin T 120 Minute 6.00 ng/L (0-15) 11/07/23 21:11 Delta Troponin T 0.99396 ABS# (0-10) 11/07/23 21:11 Total Protein 6.6 g/dL (6.6-8.7) 11/07/23 19:11 Albumin 4.7 g/dL (3.5-5.2) 11/07/23 19:11 Globulin 1.9 g/dL (1.3-4.6) 11/07/23 19:11 All radiology interpretation(s) finalized by discharge Discharge Plan Discharge Patient Disposition: Home Clinical Impression: Intermittent hypertension Condition: Stable Prescriptions: No Action celecoxib 200 mg capsule 200 mg PO BID Qty: 30 1RF lamotrigine [Lamictal] 200 mg tablet 200 mg PO DAILY amoxicillin 875 mg tablet 875 mg PO Q12H 10 Days Qty: 20 0RF pantoprazole [Protonix] 40 mg tablet,delayed release (DR/EC) 40 mg PO BID 42 Days Qty: 84 1RF hydrocodone-acetaminophen 5-325 mg tablet 1 tab PO Q6H PRN (Reason: pain) Qty: 14 0RF ondansetron 4 mg tablet,disintegrating 4 mg PO Q8H PRN (Reason: nausea and vomiting) Qty: 14 0RF Discharge Orders: Discharge ED (Routine); Ordered 11/07/23 Ordered By: Verna Garcia Referrals: Grabiel Edmond DO [Primary Care Provider] - Activity Restrictions/Additional Instructions: As we discussed I would like you to keep a blood pressure log (2-3 times daily) and follow up with primary care in 2 weeks at your currently scheduled appointment. Coding Level of Care Code ED Chain Testing Machine Operator for Ashtyn Arriaga
[2023-11-07 19:15] LABS: Basophils % 0.2 %; Eosinophils # 0.1 10^3/uL (0.0-0.8); Eosinophils % 1.1 %; Hematocrit 44.2 % (37-53); Lymphocytes # 2.9 10^3/uL (0.8-4.8); Lymphocytes % 31.5 %; Mean Corpuscular HGB Conc 34.4 g/dL (30-55); Mean Corpuscular Hemoglobin 29.2 pg (27-33); Mean Corpuscular Volume 84.8 fl (82-101); Mean Platelet Volume 10.3 fL (7.4-10.4); Monocytes # 0.6 10^3/uL (0.2-0.9); Monocytes % 6.6 %; Neutrophils # 5.65 10^3/uL (1.8-7.7); Neutrophils % 60.5 %; Nucleated Red Blood Cells % 0 %; Platelet Count 310 10^3/cmm (157-399); Red Blood Count 5.21 10^6/uL (3.85-5.65); Red Cell Distribution Width 12.3 % (12.1-15.1); White Blood Count 9.34 10^3/uL (3.29-11.43)
[2023-11-07 19:40] LABS: Troponin(5th) Baseline < 6 ng/L (0-15)
[2023-11-07 19:41] LABS: Alanine Aminotransferase 19 U/L (0-41); Albumin Level 4.7 g/dL (3.5-5.2); Alkaline Phosphatase 76 U/L (40-130); Anion Gap 12.8 (5-19); Aspartate Amino Transferase 12 U/L (0-40); Blood Urea Nitrogen 13 mg/dL (6-20); Calcium 9.1 mg/dL (8.5-10.5); Carbon Dioxide 26 mmol/L (22-29); Chloride 104 mmol/L (98-107); Creatinine Clr Calc Pharmacy 119.4526; Globulin 1.9 g/dL (1.3-4.6); Glomerular Filtration Rate 69.7 mL/min (90-130); Glucose 91 mg/dL (65-115); Osmolality Calculated 288 mOsm/kg (285-295); Potassium 3.8 mmol/L (3.5-5.1); Sodium 139 mmol/L (136-145); Total Bilirubin 0.5 mg/dL (0.15-1.2); Total Protein 6.6 g/dL (6.6-8.7)
[2023-11-07 19:54] VITALS: BP 134/86; PULSE 94; RESP 16; O2SAT 95
[2023-11-07] MEDS: sodium chloride 0.9% 1,000 ML 999 ML IV (19:59)
[2023-11-07 20:34] VITALS: BP 126/80; PULSE 79; RESP 16; O2SAT 99
--- NOTE | 2023-11-07 20:35 | PC.NURSE ---
this nurse assumed pt care at 1930.
--- NOTE | 2023-11-07 20:49 | ECG_ITS ---
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 Measurements Intervals [place] Rate: 72 P: 28 VA: 153 QRS: 7 QRSD: 97 T: 34 QT: 351 QTc: 386 Interpretive Statements SINUS RHYTHM Compared to ECG 11/07/2023 18:36:40 No significant changes Electronically Signed On 11-07-2023 22:44:19 CDT by Maxi Skelton M.D. [email or web address] state university [facility].[email or web address]/OM/[id number]
[2023-11-07 21:00] VITALS: BP 132/78; PULSE 80; RESP 16; O2SAT 97
[2023-11-07 21:45] LABS: Troponin 5 2HR Delta 0.00001 ABS# (0-10)
[2023-11-07 22:03] VITALS: BP 126/82; PULSE 83; RESP 16; TEMP 36.7; O2SAT 98
== END 2023-11-07 22:05 | disposition home or self-care (01) ==
PROVIDERS: Emergency Medicine; Emergency Provider Physician Assistant; PCP Electrodiagnostic Medicine
DX: I10 Essential (primary) hypertension (principal); F17.220 Nicotine dependence, chewing tobacco, uncomplicated
CPT/HCPCS: 36415; 71045; 80053; 84484; 85025; 93005; 99285; J7030

== ENCOUNTER → 2023-12-20 18:20 | Outpatient (BNVA) | payer BC, MEDICAID, SELFPAY | PROVIDERS: PCP Electrodiagnostic Medicine; Visit Provider Emergency Medicine | DX: J02.9 Acute pharyngitis, unspecified (principal) | CPT/HCPCS: 87880 ==

== ENCOUNTER 2024-01-23 14:24 | Emergency (ER) | payer BC, MEDICAID, SELFPAY ==
[2024-01-23 14:26] VITALS: BP 147/97; PULSE 97; RESP 18; TEMP 36.7; O2SAT 97
[2024-01-23 15:10] LABS: Basophils % 0.1 %; Eosinophils # 0.1 10^3/uL (0.0-0.8); Eosinophils % 0.9 %; Hematocrit 45.4 % (37-53); Lymphocytes # 2.7 10^3/uL (0.8-4.8); Lymphocytes % 26.1 %; Mean Corpuscular HGB Conc 34.8 g/dL (30-55); Mean Corpuscular Volume 86.1 fl (82-101); Mean Platelet Volume 10.2 fL (7.4-10.4); Monocytes # 0.6 10^3/uL (0.2-0.9); Monocytes % 6.1 %; Neutrophils # 6.92 10^3/uL (1.8-7.7); Neutrophils % 66.4 %; Nucleated Red Blood Cells % 0 %; Platelet Count 317 10^3/cmm (157-399); Red Blood Count 5.27 10^6/uL (3.85-5.65); Red Cell Distribution Width 12.8 % (12.1-15.1); White Blood Count 10.41 10^3/uL (3.29-11.43)
[2024-01-23 15:26] LABS: Alanine Aminotransferase 21 U/L (0-41); Albumin Level 4.6 g/dL (3.5-5.2); Alkaline Phosphatase 84 U/L (40-130); Anion Gap 13.7 (5-19); Aspartate Amino Transferase 13 U/L (0-40); Blood Urea Nitrogen 11 mg/dL (6-20); Carbon Dioxide 27 mmol/L (22-29); Chloride 104 mmol/L (98-107); Creatinine Clr Calc Pharmacy 146.6459; Globulin 2.4 g/dL (1.3-4.6); Glomerular Filtration Rate 86.1 mL/min (90-130); Glucose 132 mg/dL (65-115); Lipase 31 U/L (13-60); Osmolality Calculated 293 mOsm/kg (285-295); Potassium 3.7 mmol/L (3.5-5.1); Sodium 141 mmol/L (136-145); Total Bilirubin 0.4 mg/dL (0.15-1.2)
[2024-01-23 16:08] LABS: Bilirubin Urine Negative (Negative); Blood Urine Negative (Negative); Glucose Urine UA Negative (Normal); Ketones Urine Negative (Negative); Leukocyte Esterase Urine Negative (Negative); Nitrate Urine Negative (Negative); Protein Urine Negative (Negative); Specific Gravity, Urine 1.021 (1.005-1.030); Urine Appearance Clear (CLEAR); Urine Color Yellow (Yellow)
[2024-01-23 16:12] LABS: Add Urine Microscopic? YES; Bacteria Urine None Seen /hpf; RBC Urine 0-2 /hpf (0-2); Squamous Epithelial Cell Urine 0-5 /hpf (0-5); WBC Urine 0-5 /hpf (0-5)
--- NOTE | 2024-01-23 16:17 | CTR_ITS ---
PROCEDURE INFORMATION: Exam: CT Abdomen And Pelvis With Contrast Exam date and time: 01/23/2024 4:40 PM Age: 33 years old Clinical indication: Abdominal pain; Localized; Right lower quadrant (rlq); Additional info: Rlq pain TECHNIQUE: Imaging protocol: Computed tomography of the abdomen and pelvis with contrast. Radiation optimization: All CT scans at this facility use at least one of these dose optimization techniques: automated exposure control; mA and/or kV adjustment per patient size (includes targeted exams where dose is matched to clinical indication); or iterative reconstruction. Contrast material: OMNIPAQUE 350; Contrast volume: 100 ml; Contrast route: INTRAVENOUS (IV); COMPARISON: CT abdomen pelvis w con* [id number] 02/12/2023 1:36 PM RADIATION DOSE METRICS: Total DLP (mGy-cm): 1208.13 FINDINGS: Lungs: Lung bases are unremarkable. Liver: The liver is enlarged. Gallbladder and biliary ducts: No intrahepatic or extrahepatic biliary ductal dilatation. The gallbladder is unremarkable with no radioopaque stone. Pancreas: The pancreas is unremarkable. Spleen: The spleen is prominent but stable. Adrenal glands: Adrenal glands are unremarkable. Kidneys and ureters: No hydronephrosis or nephrolithiasis. Stomach and bowel: Stomach is not fully distended. Small and large bowel are normal in caliber without evidence of obstruction. Diverticulosis without evidence of diverticulitis. Appendix: Normal appendix. Intraperitoneal space: No free intraperitoneal air. No fluid collection. Vasculature: There is no aortic aneurysm. Lymph nodes: Multiple prominent mesenteric nodes Urinary bladder: No focal wall thickening of the urinary bladder. Reproductive: Visualized portions of the male reproductive tract are unremarkable, though routine CT is limited in this regard. Coarse calcification within the prostate. Bones/joints: No acute osseous abnormality. Soft tissues: There is a small fat containing umbilical hernia. Left fat containing inguinal hernia. CT/CT abdomen pelvis w con* [id number] IMPRESSION: 1. No acute findings. 2. Stable central mesenteric nodes 3. Left fat containing inguinal hernia
--- NOTE | 2024-01-23 16:18 | ED_ITS ---
HPI - Abdominal Pain 2 General: Chief Complaint: Abdominal Pain Stated Complaint: RLQ ABD PAIN / NAUSEA Time Seen by Provider: 01/23/24 16:03 History of Present Illness: Patient is a well-appearing 33-year-old male who presents to the ER with complaints of right lower quadrant abdominal pain that he noticed around 8 PM last night and has gradually worsened since that time. He states he sneezed this morning and causing to bend over and pain. He has had pain with any positional changes and with palpation of the right lower quadrant. He has had some anorexia but states he forced himself to eat some lunch today. He is had some nausea. He had some constipation. He denies any diarrhea or vomiting. Associated Symptoms: Denies chills, fever(s) and vomiting Related Data Home Medications Medication Instructions Recorded Confirmed lamotrigine 150 mg tablet mg PO 12/20/23 12/20/23 lisdexamfetamine 40 mg capsule mg PO 12/20/23 12/20/23 (Vyvanse) lorazepam 0.5 mg tablet mg PO 12/20/23 12/20/23 Previous Rx's Medication Instructions Recorded amoxicillin 500 mg tablet 1,000 mg (2 x 500 mg) PO BID 10 12/20/23 days #40 tabs ibuprofen 800 mg tablet 800 mg PO Q8H PRN pain #60 tabs 12/20/23 Allergies Allergy/AdvReac Type Severity Reaction Status Date / Time No Known Allergies Allergy Verified 01/23/24 14:32 Review of Systems 2 Const: Denies: fever(s), chills or diaphoresis Card: Denies: chest pain Resp: Denies: dyspnea GI: Denies: vomiting Skin/Breast: Denies: rash Neuro: Denies: headache(s) PFSH ED 2 PFSH: Medical History Right ankle strain Social History Smoking and tobacco/nicotine status: former use of tobacco/nicotine Quit status (tobacco/nicotine): has quit using Physical Exam 2 Const: COMMON NORMALS: no acute distress, average body habitus, alert and well nourished GENERAL APPEARANCE: cooperative ORIENTATION/CONSCIOUSNESS: Yes awake HENMT: COMMON NORMALS: normocephalic and atraumatic HEAD & SCALP: n ormocephalic and atraumatic Eye: COMMON NORMALS: conjunctivae normal CONJUNCTIVA: Yes conjunctivae normal Neck/C-Spine: GENERAL: Yes normal visual inspection Resp: COMMON NORMALS: normal respiratory effort, No retractions and No use of accessory muscles Cardio: COMMON NORMALS: regular rhythm and Peripheral pulses 2+ throughout RHYTHM: regular rhythm PERIPHERAL PULSES: Peripheral pulses 2+ throughout GI: COMMON NORMALS: Soft to palpation PALPATION: Yes Soft to palpation O THER: Soft, nondistended, focal tenderness in the right lower quadrant with some mild guarding. Positive Rovsing sign. No testicular tenderness. Extremity: COMMON NORMALS: full ROM and no pedal edema Neuro: COMMON NORMALS: no focal motor deficits SENSORIUM/ORIENTATION: Yes alert Skin: COMMON NORMALS: no rashes or lesions noted GENERAL SKIN EXAM: no rashes or lesions noted Course 2 Vital Signs: Vital signs: Vital Signs Temperature 98.1 F 01/23/24 14:26 Pulse Rate 77 01/23/24 17:34 Respiratory Rate 16 01/23/24 17:34 Blood Pressure 129/66 01/23/24 17:34 Pulse Oximetry 99 01/23/24 17:34 Oxygen Delivery Me thod Room Air 01/23/24 17:34 MDM - Abdominal Pain Medical Decision Making Patient is a nontoxic 33-year-old male who presents to the ER with complaints of right lower quadrant abdominal pain since yesterday evening. He said some nausea. No fevers or chills. Basic labs were obtained and unremarkable per my interpretation. CT scan of the abdomen and pelvis with IV contrast does not show any acute findings. He does have some stable central mesenteric nodes. Left fat-containing inguinal hernia. No evidence of acute appendicitis. Patient was given a liter of IV fluids for hydration. I discussed differential diagnosis with the patient at length. We discussed strict return precautions for any worsening abdominal pain at which he may need to have repeat labs or imaging. He expresses understanding and is comfortable with discharge home. Differential Diagnosis Likely abdominal pain, acute appendicitis, constipation, diverticulitis and gastroenteritis Lab Data I reviewed the patient's lab results. 01/23/24 14:57 01/23/24 14:57 Labs/Radiology: Radiology Impressions Abdomen/Pelvis CT 01/23/24 16:17 IMPRESSION: 1. No acute findings. 2. Stable central mesenteric nodes 3. Left fat containing inguinal hernia Laboratory Results WBC 10.41 10^3/uL (3.29-11.43) 01/23/24 14:57 RBC 5.27 10^6/uL (3.85-5.65) 01/23/24 14:57 Hgb 15.80 g/dL (11.27-16.99) 01/23/24 14:57 Hct 45.4 % (37-53) 01/23/24 14:57 MCV 86.1 fl (82-101) 01/23/24 14:57 MCH 30.0 pg (27-33) 01/23/24 14:57 MCHC 34.8 g/dL (30-55) 01/23/24 14:57 RDW 12.8 % (12.1-15.1) 01/23/24 14:57 Plt Count 317 10^3/cmm (157-399) 01/23/24 14:57 MPV 10.2 fL (7.4-10.4) 01/23/24 14:57 Neut % (Auto) 66.4 % 01/23/24 14:57 Lymph % (Auto) 26.1 % 01/23/24 14:57 [place] % (Auto) 6.1 % 01/23/24 14:57 Eos % (Auto) 0.9 % 01/23/24 14:57 Baso % (Auto) 0.1 % 01/23/24 14:57 Neut # (Auto) 6.92 10^3/uL (1.8-7.7) 01/23/24 14:57 Lymph # (Auto) 2.7 10^3/uL (0.8-4.8) 01/23/24 14:57 [place] # (Auto) 0.6 10^3/uL (0.2-0.9) 01/23/24 14:57 Eos # (Auto) 0.1 10^3/uL (0.0-0.8) 01/23/24 14:57 Baso # (Auto) 0.0 10^3/uL (0.0-0.1) 01/23/24 14:57 Nucleated RBC % (auto) 0 % 01/23/24 14:57 Nucleated RBCs # 0.0 /100WBC 01/23/24 14:57 Sodium 141 mmol/L (136-145) 01/23/24 14:57 Potassium 3.7 mmol/L (3.5-5.1) 01/23/24 14:57 Chloride 104 mmol/L (98-107) 01/23/24 14:57 Carbon Dioxide 27 mmol/L (22-29) 01/23/24 14:57 Anion Gap 13.7 (5-19) 01/23/24 14:57 BUN 11 mg/dL (6-20) 01/23/24 14:57 Creatinine 1.0 mg/dL (0.7-1.2) 01/23/24 14:57 GFR Calculation 86.1 mL/min (90-130) L 01/23/24 14:57 Glucose 132 mg/dL (65-115) H 01/23/24 14:57 Calculated Osmolality 293 mOsm/kg (285-295) 01/23/24 14:57 Calcium 9.0 mg/dL (8.5-10.5) 01/23/24 14:57 Total Bilirubin 0.4 mg/dL (0.15-1.2) 01/23/24 14:57 AST 13 U/L (0-40) 01/23/24 14:57 ALT 21 U/L (0-41) 01/23/24 14:57 Alkaline Phosphatase 84 U/L (40-130) 01/23/24 14:57 Total Protein 7.0 g/dL (6.6-8.7) 01/23/24 14:57 Albumin 4.6 g/dL (3.5-5.2) 01/23/24 14:57 Globulin 2.4 g/dL (1.3-4.6) 01/23/24 14:57 Lipase 31 U/L (13-60) 01/23/24 14:57 Urine Color Yellow (Yellow) 01/23/24 15:56 Urine Appearance Clear (CLEAR) 01/23/24 15:56 Urine pH 6.0 (5-7) 01/23/24 15:56 Ur Specific [place] 1.021 (1.005-1.030) 01/23/24 15:56 Urine Protein Negative (Negative) 01/23/24 15:56 Urine Glucose (UA) Negative (Normal) 01/23/24 15:56 Urine Ketones Negative (Negative) 01/23/24 15:56 Urine Blood Negative (Negative) 01/23/24 15:56 Urine Nitrate Negative (Negative) 01/23/24 15:56 Urine Bilirubin Negative (Negative) 01/23/24 15:56 Urine Urobilinogen 1.0 mg/dL (Negative) 01/23/24 15:56 Ur Leukocyte Esterase Negative (Negative) 01/23/24 15:56 Urine RBC 0-2 /hpf (0-2) 01/23/24 15:56 Urine WBC 0-5 /hpf (0-5) 01/23/24 15:56 Ur Squamous Epith Cells 0-5 /hpf (0-5) 01/23/24 15:56 Amorphous Sediment Not Reportable 01/23/24 15:56 Urine Bacteria None seen /hpf (NONE) 01/23/24 15:56 Hyaline Casts 0.40 /lpf 01/23/24 15:56 All radiology interpretation(s) finalized by discharge Discharge Plan Discharge Patient Disposition: Home Clinical Impression: Abdominal pain Condition: Stable Prescriptions: No Action lamotrigine 150 mg tablet PO lisdexamfetamine [Vyvanse] 40 mg capsule PO lorazepam 0.5 mg tablet PO amoxicillin 500 mg tablet 1,000 mg PO BID 10 Days Qty: 40 0RF ibuprofen 800 mg tablet 800 mg PO Q8H PRN (Reason: pain) Qty: 60 0RF Discharge Orders: Discharge ED (Routine); Ordered 01/23/24 Ordered By: Axel Gardner Referrals: Grabiel Edmond DO [Primary Care Provider] - Discharge Diet: Advance as tolerated Discharge Activity: Resume usual activity Patient Instructions: Abdominal Pain (ED), Opioid Safety, Pain Management Activity Restrictions/Additional Instructions: Advance diet as tolerated. Plenty of fluids to stay hydrated. Return to the emergency department if you have worsening abdominal pain, persistent vomiting, fevers, or any other concerns. Coding Level of Care Code ED Energy Sales Broker for Ashtyn Arriaga
[2024-01-23] MEDS: iohexol 350 mg/mL 500 mL Btl (per mL) IV (16:43)
[2024-01-23] MEDS: sodium chloride 0.9% 1,000 ML 999 ML IV (17:02)
[2024-01-23 17:34] VITALS: BP 129/66; PULSE 77; RESP 16; O2SAT 99
[2024-01-23 18:31] VITALS: BP 131/84; PULSE 80; RESP 14; O2SAT 96
== END 2024-01-23 18:31 | disposition home or self-care (01) ==
PROVIDERS: Physician Assistant; Emergency Provider Student in an Organized Health Care Education/Training Program; PCP Electrodiagnostic Medicine
DX: R10.31 Right lower quadrant pain (principal); Z87.891 Personal history of nicotine dependence
CPT/HCPCS: 36415; 74177; 80053; 81001; 83690; 85025; 99285; J7030

== ENCOUNTER → 2024-04-18 19:02 | Outpatient (BNVA) | payer BC, MEDICAID, SELFPAY | PROVIDERS: PCP Electrodiagnostic Medicine; Visit Provider Emergency Medicine | DX: S60.221A Contusion of right hand, initial encounter (principal); W23.0XXA Caught, crushed, jammed, or pinched between moving objects, initial encounter | CPT/HCPCS: 73130 ==

== ENCOUNTER 2024-09-09 18:18 | Emergency (ER) | payer BC, MEDICAID, SELFPAY ==
[2024-09-09 18:32] VITALS: BP 152/96; PULSE 96; RESP 17; TEMP 36.7; O2SAT 99; BMI 39.3
--- NOTE | 2024-09-09 19:47 | ED_ITS ---
HPI - Extremity Problem General: Chief complaint: Extremity Injury, Upper Stated complaint: right hand injury Time Seen by Provider: 09/09/24 18:36 Source: patient Mode of arrival: ambulatory Limitations: no limitations History of Present Illness: 34yo male presents with right hand pain and swelling from a injury that occurred 6 months ago. Patient reports his hand was crushed while he was working on a vehicle 6 months ago. States that he has been seen by [facility] orthopedics and has had multiple x-rays, but they believe there may be nerve injury. States that he is scheduled to have a nerve conduction test coming up soon, but his pain has been worsening. He has been taking ibuprofen without improvement. States that he does not have much feeling in the last 3 fingers, but this is chronic. He has no new symptoms, just worsening discomfort. Patient is right-hand dominant. Denies any other injury or concern at this time. Associated symptoms: Deny fever(s) Related Data Home Medications ?Medication ?Instructions ?Recorded ?Confirmed lamotrigine 150 mg tablet mg PO 12/20/23 04/23/24 lisdexamfetamine 40 mg capsule mg PO 12/20/23 04/23/24 (Vyvanse) Previous Rx's ?Medication ?Instructions ?Recorded ibuprofen 800 mg tablet 800 mg PO Q8H PRN pain #60 t abs 12/20/23 gabapentin 100 mg capsule 100 mg PO BID #30 caps 09/09 Allergies Allergy/AdvReac Type Severity Reaction Status Date / Time No Known Allergies Allergy Verified 04/23/24 18:58 Review of Systems Const: Denies: fever(s), chills or body aches Musc: Reports: extremity pain (right hand/forearm) Neuro: Reports: sensory changes (right hand) [facility] ED PFSH: Medical History Right ankle strain Social History Smoking and tobacco/nicotine status: former use of tobacco/nicotine Quit status (tobacco/nicotine): has quit using Physical Exam Const: COMMON NORMALS: no acute distress, patient oriented x3, healthy appearing and alert GENERAL APPEARANCE: cooperative ORIENTATION/CONSCIOUSNESS: Yes awake OTHER: [facility] He is interactive with exam appropriately. He is in no acute distress. No family at bedside HENMT: COMMON NORMALS: normocephalic and atraumatic HEAD & SCALP: normocephalic and atraumatic Neck/C-Spine: COMMON NORMALS: full ROM Chest: CHEST: Yes Symmetrical chest wall rise Resp: COMMON NORMALS: No use of accessory muscles EFFORT & INSPECTION: Yes able to speak in complete sentences Extremity: RIGHT UPPER EXTREMITY: Yes hand & digits (diffuse swelling, capillary refill < 3 sec) OTHER: Decrease finger to thumb movement. Increased pain with Bernardino's. Increased pain to the forearm area with normal range of motion of the fingers. Radial pulse 2+ Neuro: COMMON NORMALS: patient oriented x3 SENSORIUM/ORIENTATION: Yes alert Course Vital Signs: Vital signs: Vital Signs Temperature 98.0 F 09/09/24 18:32 Pulse Rate 96 09/09/24 18:32 Respiratory Rate 17 09/09/24 18:32 Blood Pressure 152/96 09/09/24 18:32 Pulse Oximetry 99 09/09/24 18:32 Oxygen Delivery Me thod Room Air 09/09/24 18:32 MDM - Extremity (Nontraumatic) Medical Decision Making 34yo male presents with right hand pain and swelling from a injury that occurred 6 months ago. Patient reports his hand was crushed while he was working on a vehicle 6 months ago. States that he has been seen by [facility] orthopedics and has had multiple x-rays, but they believe there may be nerve injury. States that he is scheduled to have a nerve conduction test coming up soon, but his pain has been worsening. He has been taking ibuprofen without improvement. States that he does not have much feeling in the last 3 fingers, but this is chronic. He has no new symptoms, just worsening discomfort. Patient is right-hand dominant. Denies any other injury or concern at this time. Patient is nontoxic in appearance. Vital signs are stable. No imaging completed today. Patient has had numerous x-rays, all of which are negative. Discussed with patient this is likely nerve pain as well as pain from the tendons. Patient does have an appointment with orthopedist coming up in the next couple of weeks. Encourage patient to make every effort to keep this appointment. Will begin gabapentin for the nerve pain. Discussed with patient importance of notifying orthopedics that he is taking gabapentin prior to his EMG study. Discussed range of motion exercises of the hand as well. Return precautions provided. Patient states understanding and has no further questions or concerns at this time. No radiology studies performed this visit Discharge Plan Discharge Patient Disposition: Home Clinical Impression: Hand pain, right, Tendinopathy of right upper extremity, Neuropathic pain Condition: Stable Prescriptions: New gabapentin 100 mg capsule 100 mg PO BID Qty: 30 0RF Rx Instructions: May increase to TID after 7 days. No Action lamotrigine 150 mg tablet PO lisdexamfetamine [Vyvanse] 40 mg capsule PO ibuprofen 800 mg tablet 800 mg PO Q8H PRN (Reason: pain) Qty: 60 0RF Discharge Orders: Discharge ED (Routine); Ordered 09/09/24 Ordered By: Moe Ram Referrals: Grabiel Edmond DO [Primary Care Provider, Family Practice] Discharge Diet: Usual diet Discharge Activity: Resume usual activity Patient Instructions: Gabapentin (By mouth), Pain Management Activity Restrictions/Additional Instructions: A prescription of gabapentin has been sent to the pharmacy to hopefully help with the nerve pain. The prescription is for twice daily, but you may increase to 3 times a day after 1 week. This medication may make you somewhat sleepy and may intensify sleepiness with your previously prescribed Lamictal. Please monitor closely Keep your previously scheduled appointment with orthopedics for follow-up Return to the emergency department if any further injury, rapid worsening symptoms, and as needed Print Language: Sammarinese Coding Level of Care Code ED Bean Snapper for Ashtyn Arriaga
[2024-09-09] MEDS: gabapentin 100 mg Capsule PO (19:58)
[2024-09-09 20:15] VITALS: BP 138/85; PULSE 78; RESP 18; O2SAT 100
== END 2024-09-09 20:17 | disposition home or self-care (01) ==
PROVIDERS: Emergency Provider Nurse Practitioner; PCP Electrodiagnostic Medicine
DX: M79.641 Pain in right hand (principal); G62.9 Polyneuropathy, unspecified; M67.98 Unspecified disorder of synovium and tendon, other site; Z87.891 Personal history of nicotine dependence
CPT/HCPCS: 99283; J9999

== ENCOUNTER 2024-09-12 13:36 | Emergency (ER) | payer BC, MEDICAID, SELFPAY ==
[2024-09-12 13:37] VITALS: BP 128/81; PULSE 95; TEMP 37.1; O2SAT 100
--- NOTE | 2024-09-12 14:00 | W.ED.BACK ---
HPI - Back Pain/Injury General: Chief Complaint: Back Pain/Injury Stated Complaint: back pain Time Seen by Provider: 09/12/24 13:40 Source: patient Mode of arrival: wheelchair Limitations: no limitations History of Present Illness: Patient is a 34-year-old male that presents to the emergency department with low back pain that does radiate down his legs from time to time. He states this began yesterday when he was bent over installing a baby gate. He denies any fall or traumatic injury. He states it will flareup on him from time to time over the years. States he took ibuprofen without relief. He also had one of his muscle relaxers, cyclobenzaprine, that he tried without any significant relief. He states usually when he gets bad like this he needs some steroids to help out. He denies any history of diabetes. He does have some nerve damage in his right hand that he is being evaluated for. He denies any abdominal pain, fever, chills, pain or burning with urination, loss of bowel or bladder control. He presents to the emergency department for further evaluation and treatment. MD elicited complaint: back pain and back injury (Bending over) Associated symptoms: Deny abdominal pain, chills, dysuria, fever(s), nausea or vomiting Related Data Home Medications ?Medication ?Instructions ?Recorded ?Confirmed lamotrigine 150 mg tablet mg PO 12/20/23 04/23/24 lisdexamfetamine 40 mg capsule mg PO 12/20/23 04/23/24 (Vyvanse) Previous Rx's ?Medication ?Instructions ?Recorded ibuprofen 800 mg tablet 800 mg PO Q8H PRN pain #60 tabs 12/20/23 gabapentin 100 mg capsule 100 mg PO BID #30 caps 09/09/24 methocarbamol 750 mg tablet 1,500 mg (2 x 750 mg) PO TID PRN 09/12/24 muscle pain #30 tabs prednisone 20 mg tablet 40 mg (2 x 20 mg) PO DAILY 5 days 09/12/24 #20 tabs Allergies Allergy/AdvReac Type Severity Reaction Status Date / Time No Known Allergies Allergy Verified 09/12/24 13:43 Review of Systems General: Reports: 10 or more systems reviewed and unremarkable except in HPI and below Const: Denies: fever(s) or chills Eyes: Denies: change in vision ENMT: Denies: throat pain or dental pain Card: Denies: chest pain, palpitations, irregular heart rhythm or edema Resp: Denies: dyspnea, productive cough, non-productive cough or wheezing GI: Denies: abdominal pain, nausea or vomiting : Denies: difficulty urinating or dysuria Musc: Reports: back pain (Low back radiating down both legs.) Skin/Breast: Denies: rash Neuro: Denies: numbness in extremities or weakness in extremities Psych: Denies: anxiety or depression Endo: Denies: polyuria or polydipsia Jose M/Lymph: Denies: petechiae All/Imm: Denies: tongue swelling or facial swelling PFSH ED PFSH: Medical History (Updated 09/12/24 @ 14:10 by JEANIE Quiroz) Sciatica Neuropathic pain Right ankle strain Social History Smoking and tobacco/nicotine status: former use of tobacco/nicotine Quit status (tobacco/nicotine): has quit using Physical Exam Const: COMMON NORMALS: alert GENERAL APPEARANCE: cooperative HENMT: COMMON NORMALS: normocephalic, atraumatic, external ears normal and Normal external nose present HEAD & SCALP: normocephalic and atraumatic NOSE: Normal external nose present EXTERNAL EAR: Yes external ears normal Eye: COMMON NORMALS: conjunctivae normal and no scleral icterus CONJUNCTIVA: Yes conjunctivae normal Neck/C-Spine: COMMON NORMALS: no meningeal signs Resp: COMMON NORMALS: clear to auscultation bilaterally AUSCULTATION: clear to auscultation bilaterally, no crackles, no rales, no rhonchi and no wheezes Cardio: COMMON NORMALS: regular rate and regular rhythm RATE: regular rate RHYTHM: regular rhythm GI: COMMON NORMALS: Soft to palpation and non-tender PALPATION: Yes Soft to palpation Back/Pelvis: LUMBAR SPINE/LOWER BACK: Yes ROM limited (Due to pain) and Yes lumbar spinal tenderness (Bilateral paraspinal tenderness around the L3-L4 level) Extremity: COMMON NORMALS: normal to inspection, no calf tenderness and no pedal edema Neuro: SENSORIUM/ORIENTATION: Yes alert MENINGEAL SIGNS: Yes no meningeal signs SPEECH: speech normal Psych: COMMON NORMALS: cooperative and speech normal ATTITUDE: Yes calm SPEECH: Yes normal speech Skin: COMMON NORMALS: no rashes or lesions noted and no petechiae GENERAL SKIN EXAM: no rashes or lesions noted Course Vital Signs: Vital signs: Vital Signs Temperature 98.8 F 09/12/24 13:37 Pulse Rate 95 09/12/24 13:37 Blood Pressure 128/81 09/12/24 13:37 Pulse Oximetry 100 09/12/24 13:37 Oxygen Delivery Me thod Room Air 09/12/24 13:37 MDM - Back Pain/Injury Medical Decision Making Patient was advised of the exam findings. Although he did injure the back while he was bending over working on a baby gate, he did not have any traumatic injury. I advised that an x-ray would be of little utility here without a traumatic injury and the patient agrees and would like to defer x-ray. This does appear to be consistent with a strain of the lumbar region as well as some sciatica or other lumbar radiculopathy. The patient was advised he may need to follow-up for an MRI at some point if the symptoms continue. He was given 10 mg of Decadron IM as well as some Norflex IM to help with the muscle spasms. He will be discharged on prednisone and Robaxin to use as directed. He requested that his medications be sent to the [facility] pharmacy in [place]. I advised no work on Friday that he may return Friday, activity as tolerated. Advised that he avoid bending, lifting or other activities that may make the symptoms worse. He was advised to follow-up with his primary care provider in 1 week for recheck and return to the emergency department with any worsening symptoms. The patient expressed understanding. Differential Diagnosis Likely lumbar radiculopathy, sciatica and strain of lumbar region No radiology studies performed this visit Critical Care Time Critical Care Time: Critical Care Time: No Discharge Plan Discharge Patient Disposition: Home Clinical Impression: Strain of lumbar region Qualifiers: Encounter type: initial encounter Qualified Code(s): S39.012A - Strain of muscle, fascia and tendon of lower back, initial encounter Sciatica Qualifiers: Laterality: bilateral Qualified Code(s): M54.31 - Sciatica, right side Condition: Stable Prescriptions: New prednisone 20 mg tablet 40 mg PO DAILY 5 Days Qty: 20 0RF methocarbamol 750 mg tablet 1,500 mg PO TID PRN (Reason: muscle pain) Qty: 30 0RF Rx Instructions: No alcohol use or driving with this medication. No Action lamotrigine 150 mg tablet PO lisdexamfetamine [Vyvanse] 40 mg capsule PO ibuprofen 800 mg tablet 800 mg PO Q8H PRN (Reason: pain) Qty: 60 0RF gabapentin 100 mg capsule 100 mg PO BID Qty: 30 0RF Rx Instructions: May increase to TID after 7 days. Discharge Orders: Discharge ED (Routine); Ordered 09/12/24 Ordered By: Jaskaran Henry Referrals: Grabiel Edmond DO [Primary Care Provider, Family Practice] Discharge Diet: Usual diet Discharge Activity: Increase activity as tolerated Patient Instructions: Opioid Safety, Pain Management, Low Back Strain (ED), Lower Back Exercises (ED), Sciatica (ED) Activity Restrictions/Additional Instructions: Take medications as directed. Your prescriptions were sent electronically to the [facility] pharmacy in [place]. Avoid activities that make the pain worse such as bending, lifting, twisting etc. Alternate ice and heat to the back. Ice for 20 minutes, then nothing for 20 minutes, then heat for 20 minutes. Repeat 4-5 times throughout the day. No work on Friday. You may return on Friday, activity as tolerated. Follow-up with your doctor within 1 week for recheck. Return to the emergency department with any worsening symptoms such as fever, rash, loss of bowel or bladder control or any other worsening symptoms. Stand Alone Forms: Work/School Release Print Language: Albanian Coding Level of Care Code ED Steel Floor Pan Placing Supervisor for Ashtyn Arriaga
[2024-09-12 14:11] VITALS: BP 154/94; PULSE 89; O2SAT 96
[2024-09-12] MEDS: dexamethasone 10 mg/mL INJ IM (14:28)
[2024-09-12] MEDS: orphenadrine 30 mg/mL Inj 2 mL 60 MG IM (14:30)
[2024-09-12 14:39] VITALS: BP 140/82; PULSE 89; O2SAT 99
== END 2024-09-12 14:41 | disposition home or self-care (01) ==
PROVIDERS: Emergency Provider Physician Assistant; PCP Electrodiagnostic Medicine
DX: S39.012A Strain of muscle, fascia and tendon of lower back, initial encounter (principal); X58.XXXA Exposure to other specified factors, initial encounter
CPT/HCPCS: 12345; 96372; 99284; J1100; J2360

== ENCOUNTER 2024-12-10 16:21 | Emergency (ER) | payer BC, MEDICAID, SELFPAY ==
--- NOTE | 2024-12-10 16:25 | ECG_ITS ---
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 Measurements Intervals Wood Rate: 93 P: 48 IN: 156 QRS: -9 QRSD: 99 T: 27 QT: 316 QTc: 395 Interpretive Statements SINUS RHYTHM Compared to ECG 11/07/2023 20:53:40 No significant changes Electronically Signed On 12-11-2024 08:42:36 CDT by Maxi Skelton M.D. [email or web address]
--- NOTE | 2024-12-10 16:25 | XRR_ITS ---
PROCEDURE INFORMATION: Exam: XR Chest Exam date and time: 12/10/2024 5:02 PM Age: 34 years old Clinical indication: Dyspnea; Additional info: Dyspnea/cough TECHNIQUE: Imaging protocol: Radiologic exam of the chest. Views: 1 view. COMPARISON: CR (CHEST, ) 11/07/2023 6:57 PM FINDINGS: Lungs: Unremarkable. No consolidation. Pleural spaces: Unremarkable. No pleural effusion. No pneumothorax. Heart/Mediastinum: Unremarkable. No cardiomegaly. Bones/joints: Unremarkable. XR/XR chest 1V portable [id number] IMPRESSION: No acute findings.
[2024-12-10 16:47] VITALS: BP 142/95; PULSE 96; RESP 16; TEMP 36.8; O2SAT 99
[2024-12-10 17:36] LABS: Hematocrit 44.4 % (37-53); Hemoglobin 15.30 g/dL (11.27-16.99); Mean Corpuscular HGB Conc 34.5 g/dL (30-55); Mean Corpuscular Hemoglobin 29.2 pg (27-33); Mean Corpuscular Volume 84.7 fl (82-101); Nucleated Red Blood Cells % 0 %; Platelet Count 315 10^3/cmm (157-399); Red Blood Count 5.24 10^6/uL (3.85-5.65); White Blood Count 9.64 10^3/uL (3.29-11.43)
[2024-12-10 17:51] LABS: Alanine Aminotransferase 21 U/L (0-41); Albumin Level 4.5 g/dL (3.5-5.2); Alkaline Phosphatase 68 U/L (40-130); Anion Gap 13.8 (5-19); Aspartate Amino Transferase 13 U/L (0-40); Blood Urea Nitrogen 10 mg/dL (6-20); Calcium 9.1 mg/dL (8.5-10.5); Carbon Dioxide 26 mmol/L (22-29); Chloride 104 mmol/L (98-107); Creatinine Clr Calc Pharmacy 143.3391; Globulin 2.4 g/dL (1.3-4.6); Glucose 91 mg/dL (65-115); Lipase 37 U/L (13-60); Osmolality Calculated 289 mOsm/kg (285-295); Potassium 3.8 mmol/L (3.5-5.1); Sodium 140 mmol/L (136-145); Total Protein 6.9 g/dL (6.6-8.7)
[2024-12-10] MEDS: LORazepam 1 MG/0.5 ML injection 0.5 MG IVP (18:00)
[2024-12-10 18:06] LABS: Glucose Urine UA Negative (Normal); Nitrate Urine Negative (Negative); Specific Gravity, Urine 1.010 (1.005-1.030)
[2024-12-10 18:11] LABS: Add Urine Microscopic? YES
[2024-12-10 18:12] VITALS: BP 161/83; PULSE 78; RESP 16; O2SAT 96
--- NOTE | 2024-12-10 18:14 | CTR_ITS ---
PROCEDURE INFORMATION: Exam: CT Head Without Contrast Exam date and time: 12/10/2024 6:35 PM Age: 34 years old Clinical indication: Altered mental status/memory loss and fever; C/O fever with confusion since dental extraction due to abscess two days ago. ; Additional info: Recent dental extraction, confusion, fevers TECHNIQUE: Imaging protocol: Computed tomography of the head without contrast. Radiation optimization: All CT scans at this facility use at least one of these dose optimization techniques: automated exposure control; mA and/or kV adjustment per patient size (includes targeted exams where dose is matched to clinical indication); or iterative reconstruction. COMPARISON: No relevant prior studies available. RADIATION DOSE METRICS: Total DLP (mGy-cm): 1130.88 FINDINGS: Brain: Normal. No hemorrhage. Unremarkable white matter. No mass effect. Cerebral ventricles: No ventriculomegaly. Paranasal sinuses: Visualized sinuses are unremarkable. No fluid levels. Mastoid air cells: Visualized mastoid air cells are well aerated. Bones: Unremarkable. No acute fracture. Soft tissues: Unremarkable. CT/CT head wo con* [id number] IMPRESSION: No acute intracranial abnormality.
--- NOTE | 2024-12-10 18:23 | ED_ITS ---
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 and supervised. - Do not self-administer benzodiazepines (e.g., lorazepam) unless specifically prescribed, as excessive sedation and respiratory depression may occur. - Anxiety and Sleep Hygiene: - Practice relaxation techniques (e.g., deep breathing, mindfulness) to manage anxiety, which may contribute to cognitive symptoms. - Maintain a regular sleep schedule; avoid sleep deprivation. - Activity and Safety: - Avoid driving, operating heavy machinery, or engaging in hazardous activities for at least 24 hours after receiving IV lorazepam, or until drowsiness and impaired coordination have fully resolved. - Resume normal activities as tolerated, but rest as needed. - Nutrition: - Resume a regular diet as tolerated. - Ensure adequate caloric and electrolyte intake. - Monitoring and Follow-up: - Watch for recurrence of confusion, persistent anxiety, fever, new neurological symptoms, or any signs of infection. - If symptoms recur or worsen, seek prompt medical attention. - Schedule follow-up with primary care or neurology as appropriate, especially if there are concerns regarding antiepileptic drug management or recurrent episodes. When to Seek Immediate Medical Attention: - New or worsening confusion, agitation, or disorientation - Seizures - Focal neurological deficits (e.g., weakness, numbness, speech changes) - Persistent vomiting, inability to tolerate fluids - Signs of infection (e.g., high fever, neck stiffness, severe headache) Additional Considerations: - No evidence of infection, metabolic derangement, or intracranial pathology was found on current evaluation. - No further neuroimaging or laboratory testing is indicated unless new symptoms develop. - Avoid alcohol and recreational drugs, which may precipitate further episodes of altered mental status. Patient Education: - Acute confusional states are often multifactorial and reversible with supportive care. - Medication changes, dehydration, anxiety, and minor viral illnesses are common contributors. - Adherence to medication and follow-up is essential for prevention of recurrence. Contact Information: - For urgent concerns, contact the emergency department or primary care provider. Reviewed and approved by attending physician. Print Language: [place] Coding Level of Care Code ED Warehouse Order Filler for Ashtyn Arriaga
[2024-12-10 18:48] LABS: Respiratory Syncytial Virus Ce NEGATIVE (Negative); SARS-CoV-2 PCR NEGATIVE (Negative)
== END 2024-12-10 20:30 | disposition home or self-care (01) ==
PROVIDERS: Family Medicine; Emergency Provider Physician Assistant; PCP Electrodiagnostic Medicine
DX: E86.0 Dehydration (principal); R41.0 Disorientation, unspecified; F41.9 Anxiety disorder, unspecified; Z87.891 Personal history of nicotine dependence; Z11.52 Encounter for screening for COVID-19
CPT/HCPCS: 70450; 71045; 80053; 81001; 83690; 85025; 85651; 86140; 87637; 93005; 96374; 99285; J2060; J7030; J9999

== ENCOUNTER 2025-04-12 16:44 | Emergency (ER) | payer BC, MEDICAID, SELFPAY ==
[2025-04-12 16:48] VITALS: BP 140/92; PULSE 127; RESP 18; TEMP 36.7; O2SAT 96; BMI 36.8
--- NOTE | 2025-04-12 16:52 | XRR_ITS ---
PROCEDURE INFORMATION: Exam: XR Chest Exam date and time: 04/12/2025 4:52 PM Age: 34 years old Clinical indication: Dyspnea; Additional info: Dyspnea/cough TECHNIQUE: Imaging protocol: Radiologic exam of the chest. Views: 1 view. COMPARISON: CR XR chest 1V portable [id number] 12/10/2024 5:02 PM FINDINGS: Lungs: Unremarkable. No consolidation or mass. Pleural spaces: Unremarkable. No pleural effusion. No pneumothorax. Heart/Mediastinum: Unremarkable. No cardiomegaly. Bones/joints: Unremarkable. XR/XR chest 1V portable [id number] IMPRESSION: No acute findings.
--- OUTSIDE RECORDS SUMMARY | 2025-04-12 16:52 | XMS_ITS | Data Portability ---
Author Organization [facility] Tyrel [place], .[facility] Address [address] [place] [id number] Care Team Providers Care Slubber Runner Name Role Phone JUSTIN VARGAS Primary Care Provider Assessment Encounter Date Assessment Date Assessment LastModified by Organization Details LastModified Time 10/19/2024 10/19/2024 Document scribed by Wilian Sanchez. I was present during interview and exam. I have reviewed and agree with above documentation . Dr. Justin Vargas. [email or web address] Not available 10/19/2024 08:24:43 10/27/2024 10/27/2024 Document scribed by Wilian Sanchez. I was present during interview and exam. I have reviewed and agree with above documentation . Dr. Justin Vargas. [email or web address] Not available 10/27/2024 09:02:00 11/24/2024 11/24/2024 Document scribed by Wilian Sanchezibe. I was present during interview and exam. I have reviewed and agree with above documentation . Dr. Justin Vargas. [email or web address] Not available 11/24/2024 07:49:38 02/07/2025 02/07/2025 Document scribed by Wilian Sanchez. I was present during interview and exam. I have reviewed and agree with above documentation . Dr. Justin Vargas. [email or web address] Not available 02/07/2025 14:48:51 Plan of Treatment Reminders Order Date Submit Date Provider Last Modified By Organization Details Last Modified Time Details Appointments RECHECK 2025 02:00P Ivonne Vargas, DO Not available Not available Not available Lab pharyngea l pathogens DNA and RNA panel, BABITA+non-p robe, throat 2024 [email or web address] [facility] ([facility]), [address] [place], [address], 02/23/2025 11:55:07 CMP, serum or plasma [address] [facility], [address] [place] [address], [address], [address], 02/21/2025 09:29:21 lipid panel, blood [address] [facility], [address] [place] [address], [facility] [address], [address], 02/21/2025 09:29:21 CBC [address] [facility], [address] [place] [address], [address], 02/21/2025 09:29:21 Referral None recorded. Procedures None recorded. Surgeries None recorded. [facility] [address] [place], [address], 11/16/2024 13:46:09 Medication Orders amoxicill in 500 mg capsule 2024 [facility]armacy #[id number], [address] [facility], [facility] [address], [address], 03/12/2025 05:01:57 dextroamp hetamine- amphetami ne ER 30 mg 24hr capsule,e xtend release 2024 [facility]/Pharmacy #[id number], [address] [facility], [facility], [place], [address], 02/07/2025 15:36:06 Ozempic 0.25 mg or 0.5 mg (2 mg/1.5 mL) subcutane ous pen injector 2024 025 [id number], [address], [place], [address], 11/24/2024 09:15:06 lamotrigi ne 100 mg tablet 2024 025 [facility]/Pharmacy #[id number], [address], [address], [place], [address], 02/07/2025 14:30:41 dextroamp hetamine- amphetami ne ER 20 mg 24hr capsule,e xtend release 2024 025 [id number], [address], [address], [place], [address], 11/24/2024 09:15:07 dextroamp hetamine- amphetami ne ER 20 mg 24hr capsule,e xtend release 2024 025 [id number], [address], [address], [place], [address], 10/27/2024 09:13:26 Ozempic 0.25 mg or 0.5 mg (2 mg/1.5 mL) subcutane ous pen injector 2024 025 [email or web address] [id number] [address], [address], [place], [address], 10/19/2024 18:21:32 Patient TargetsNo targets recorded. Patient Instructions Encounter Date Encounter Id Patient Instructions Last Modified By Organization Details Last Modified Time 02/23/2025 [id number] May take OTC Dayquil. Increase fluids. Follow up for worsening [email or web address] Not available 02/23/2025 12:44:08 Reason for Referral None Reported. Results Created Date Observation Date Name Description Value Unit Range Abnormal Flag Note LastModifiedBy Organization Detail LastModifiedTime 02/24/2002/23/2025 phary ngeal patho gens DNA and RNA panel , BABITA+n on-pr obe, throa t Strep A positi ve Not Available [facility] ([facility]) [address] [place] [address], [phone], 02/23/2025 08:40:26 02/24/20 25 02/23/2025 phary ngeal patho gens DNA and RNA panel , BABITA+n on-pr obe, throa t Rhinovirus positi ve Not Available [facility] ([facility]) [address] [place] [address], [phone], 02/23/2025 08:40:26 02/24/20 25 02/23/2025 phary ngeal patho gens DNA and RNA panel , BABITA+n on-pr obe, throa t RSV negati ve Not Available [facility] ([facility]) [address] [place] [address], [phone], 02/23/2025 08:40:26 02/24/20 25 02/23/2025 phary ngeal patho gens DNA and RNA panel , BABITA+n on-pr obe, throa t Influenza A negati ve Not Available [facility] ([facility]) [address] [place] [address], [phone], 02/23/2025 08:40:26 02/24/20 25 02/23/2025 phary ngeal patho gens DNA and RNA panel , BABITA+n on-pr obe, throa t Influenza B negati ve Not Available [facility] ([facility]) [address] [place] [address], [address], 02/23/2025 08:40:26 02/24/20 25 02/23/2025 phary ngeal patho gens DNA and RNA panel , BABITA+n on-pr obe, throa t Strep A positi ve Not Available [facility] ([facility]) [address] [place] [address], [address], 02/23/2025 08:10:36 02/24/20 25 02/23/2025 phary ngeal patho gens DNA and RNA panel , BABITA+n on-pr obe, throa t Rhinovirus positi ve Not Available [facility] ([facility]) [address] [place] [address], [address], 02/23/2025 08:10:36 02/24/2002/23/2025 phary ngeal patho gens DNA and RNA panel , BABITA+n on-pr obe, throa t RSV negati ve Not Available [facility] ([facility]) [address] [place] [address], [phone], 02/23/2025 08:10:36 02/24/20 25 02/23/2025 phary ngeal patho gens DNA and RNA panel , BABITA+n on-pr obe, throa t Influenza A negati ve Not Available [facility] ([facility]) [address] [place] [address], [address], 02/23/2025 08:10:36 02/24/2002/23/2025 phary ngeal patho gens DNA and RNA panel , BABITA+n on-pr obe, throa t Influenza B negati ve Not Available [facility] ([facility]) [address] [place] [address], [address], 02/23/2025 08:10:36 Result Notes None recorded. Problems Name Problem SNOMED Code Status Onset Date Resolution Date Notes Provider Name and Address Organization Details Recorded Time History of bacterial infection 022776939811 101 Active 2019 HISTORY OF [place] SPOTTED FEVER; ANIVAL PERRY [address] [place] [address], [phone], [facility] 5 09:19:01 History of respirato ry disease 713852054 Active 2019 HISTORY OF ASTHMA [address], [address], [facility] L[facility]aneL.CJeane 5 09:19:01 Depressiv e disorder 42181713 Active [address], [address], [facility] 5 09:19:01 Bipolar I disorder 546830047 Active [address], [address], [facility] LJeaneL.CJeane 5 09:18:48 Morbid obesity 482872154 Active [address], [address], [facility] 5 09:19:01 Adult attention deficit hyperacti vity disorder 940933661 Active [address], [address], [facility] 5 09:18:38 Anxiety 78683146 Active [address], [address], [facility] 5 09:18:42 Lipoma of skin and subcutane ous tissue of neck 75028693 Active [address], [address], [facility] 09:19:01 Problem Notes None recorded. Medical Equipment None Reported. Allergies No known drug allergies Medications Name Sig Start Date Stop Date Status Note LastModified by Organization Details LastModified Time celecoxib 200 mg capsule TAKE 1 CAPSULE BY MOUTH TWICE DAILY FOR ANKLE INJURY 07/17 completed Not Available Not Available Not Available amoxicill in 500 mg capsule Take 1 capsule 3 times a day by oral route with meal(s) for 10 days. 03/12 completed Not Available Not Available Not Available lamotrigi ne 150 mg tablet TAKE 1 TABLET BY MOUTH TWICE A DAY 02/07 completed Not Available Not Available Not Available neomycin- polymyxin -hydrocor t 3.5 mg/mL-10, 000 unit/mL-1 % ear solution INSTILL 4 DROPS INTO AFFECTED EAR EVERY 6 TO 8 HOURS FOR 10 DAYS 09/23 completed Not Available Not Available Not Available lamotrigi ne 200 mg tablet TAKE 1 TABLET BY MOUTH EVERY DAY 05/21 completed Not Available Not Available Not Available ibuprofen 800 mg tablet TAKE 1 TABLET BY MOUTH EVERY 8 HOURS NEEDED FOR PAIN active Not Available Not Available No t Available hydrocodo ne 5 mg-acetam inophen 325 mg tablet TAKE 1 TABLET BY MOUTH EVERY 6 HOURS NEEDED FOR PAIN 04/30 completed Not Available Not Available Not Available prednison e 20 mg tablet TAKE 2 TABLETS BY MOUTH ONCE DAILY FOR 5 DAYS 09/28 completed Not Available Not Available Not Available quetiapin e 100 mg tablet TAKE 1 TABLET BY MOUTH EVERY DAY AT BEDTIME 09/23 completed Not Available Not Available Not Available amoxicill in 875 mg tablet TAKE 1 TABLET BY MOUTH EVERY 12 HOURS FOR 10 DAYS 04/30 completed Not Available Not Available Not Available lorazepam 0.5 mg tablet TAKE 2 TABLETS BY MOUTH TWICE A DAY NEEDED FOR SEVERE STRESS/A NXIETY 2024 active Not Available Not Available Not Avai lable methocarb columba 750 mg tablet TAKE 2 TABLETS BY MOUTH THREE TIMES DAILY NEEDED FOR MUSCLE PAIN (NO ALCOHOL USE OR DRIVING WITH THIS MEDICATI ON) 10/19 completed Not Available Not Available Not Available dextroamp hetamine- amphetami ne ER 20 mg 24hr capsule,e xtend release TAKE 1 CAPSULE EVERY DAY BY ORAL ROUTE IN THE MORNING, FOR ADHD. active Not Available Not Available No t Available pantopraz ole 40 mg tablet,de layed release TAKE 1 TABLET BY MOUTH TWICE A DAY 08/26 completed Not Available Not Available Not Available gabapenti n 100 mg capsule TAKE 1 CAPSULE BY MOUTH TWICE A DAY MAY INCREAE TO 3 TIMES A DAY AFTER 7 DAYS 10/19 completed Not Available Not Available Not Available methylpre dnisolone 4 mg tablets in a dose pack TAKE DIRECTED PER PACKAGE INSTRUCT IONS 08/31 completed Not Available Not Available Not Available dextroamp hetamine- amphetami ne ER 30 mg 24hr capsule,e xtend release TAKE 1 CAPSULE EVERY DAY BY MOUTH IN THE MORNING, FOR ATTENTIO N. active Not Available Not Available No t Available ondansetr on 4 mg disintegr ating tablet PLACE 1 TABLET BY TRANSLIN GUAL ROUTE 3 TIMES A DAY NEEDED FOR 15 DAYS active Not Available Not Available No t Available sertralin e 50 mg tablet TAKE 1 TABLET EVERY DAY BY MOUTH IN THE EVENING FOR MOOD active Not Available Not Available No t Available lamotrigi ne 100 mg tablet TAKE 1 TABLET TWICE A DAY BY ORAL ROUTE FOR 30 DAYS, FOR BIPOLAR DISORDER . 02/07 completed Not Available Not Available Not Available amoxicill in 875 mg-potass ium clavulana te 125 mg tablet TAKE 1 TABLET BY MOUTH TWICE DAILY FOR 10 DAYS 02/07 completed Not Available Not Available Not Available Ventolin HFA 90 mcg/actua tion aerosol inhaler INHALE 2 PUFFS BY MOUTH EVERY 4 HOURS NEEDED FOR COUGH. active Not Available Not Available No t Available Ciprodex 0.3 %-0.1 % ear drops,tex pension INSTILL 4 DROPS INTO AFFECTED EAR(S) TWICE A DAY FOR 7 DAYS 09/23 completed Not Available Not Available Not Available albuterol sulfate q 4hr prn cough 04/30 completed Recorded 04/18/20 22 8:05AM by Vanna Angela RN, Historic al Summary; Refill Quantity : 0; Not Available Not Available Not Available Vyvanse 30 mg capsule TAKE 1 CAPSULE BY MOUTH ONCE DAILY IN THE MORNING FOR 30 DAYS 11/10 completed Not Available Not Available Not Available Vyvanse 20 mg capsule TAKE 1 CAPSULE EVERY DAY BY ORAL ROUTE, FOR MOOD. 11/24 completed Not Available Not Available Not Available Vyvanse 40 mg capsule TAKE 1 CAPSULE BY MOUTH ONCE DAILY FOR 30 DAYS 08/31 completed Not Available Not Available Not Available Vyvanse 10 mg capsule TAKE 1 CAPSULE BY MOUTH ONCE DAILY FOR 30 DAYS 11/10 completed Not Available Not Available Not Available Ozempic 0.25 mg or 0.5 mg (2 mg/1.5 mL) subcutane ous pen injector Inject 0.5 mg every week by subcutan eous route, for obesity. 2024 active Not Available Not Available Not Avai lable Voltaren Arthritis Pain 1 % topical gel APPLY 2 GRAMS TO THE AFFECTED AREA(S) BY TOPICAL ROUTE 4 TIMES PER DAY 2022 active Not Available Not Available Not Avai lable Paxlovid 300 mg (150 mg x 2)-100 mg tablets in a dose pack TAKE 1 DIRECTED TWICE DAILY FOR 5 DAYS. 01/06 completed Not Available Not Available Not Available Ozempic 0.25 mg or 0.5 mg (2 mg/3 mL) subcutane ous pen injector INJECT 0.25 MG SUBCUTAN EOUSLY ONCE A WEEK active Not Available Not Available No t Available Zepbound 2.5 mg/0.5 mL subcutane ous pen injector INJECT 0.5 ML EVERY WEEK BY SUBCUTAN EOUS ROUTE, FOR WEIGHT LOSS. 10/19 completed Not Available Not Available Not Available Vitals Date Recorded Body height Body mass index (BMI) Body weight Respiratory rate Oxygen saturation Heart rate Systolic And Diastolic Provider Name and Address Organization Details Last Updated DateTime 5 182.88 cm 41.7 kg/m2 862517. 96 g 18 /min 98 % 71 /min 128/80 mm[Hg] Kady Dinh [facility] 5 08:20:21 Date Recorded Body height Body mass index (BMI) Body weight Oxygen saturation Heart rate Respiratory rate Provider Name and Address Organization Details Last Updated DateTime 5 182.88 cm 40.2 kg/m2 362852. 74 g 97 % 81 /min 18 /min Kady Dinh [facility] 5 08:35:39 Date Recorded Body height Body mass index (BMI) Body weight Oxygen saturation Heart rate Systolic And Diastolic Provider Name and Address Organization Details Last Updated DateTime 5 182.88 cm 39.2 kg/m2 157886. 19 g 98 % 92 /min 120/88 mm[Hg] [facility] 5 08:25:28 Date Recorded Body height Body mass index (BMI) Body weight Oxygen saturation Heart rate Respiratory rate Systolic And Diastolic Provider Name and Address Organization Details Last Updated DateTime 5 182.88 cm 38.1 kg/m2 434516. 46 g 99 % 92 /min 18 /min 120/82 mm[Hg] [facility] 5 14:35:12 Date Recorded Body height Body mass index (BMI) Body weight Oxygen saturation Heart rate Body temperature Systolic And Diastolic Provider Name and Address Organization Details Last Updated DateTime 5 182.88 cm 38 kg/m2 258180. 86 g 97 % 107 /min 100 [degF] 126/78 mm[Hg] Jayla Diaz [facility] 5 08:08:40 Social History Question Answer Notes LastModified by Leveler Details LastModified Time Tobacco Smoking Status Former [facility] 06/28/2024 09:15:43 Which Illicit Or Recreational Drugs Have You Used? Izabella [email or web address] Information not available 07/17/2022 What Was The Date Of Your Most Recent Tobacco Screening? 02/23/2025 [email or web address] Information not available 02/23/2025 Sex: Unknown Functional Status Question Answer Note LastModified by Leveler Details LastModified Time Do you use any illicit or recreational drugs? Yes [email or web address] Information not available 07/17/2022 Do you or have you ever used any other forms of tobacco or nicotine? Yes [email or web address] Information not available 07/17/2022 What is your level of alcohol consumption? Occasional [email or web address] Information not available 07/17/2022 Do you or have you ever used smokeless tobacco? Current snuff user [email or web address] Information not available 07/17/2022 Mental Status None recorded. Family History Nothing Reported. Medical History Condition Response Coronary Artery Disease N Other Y Gout N Kidney Stones N Blood Diseases N Hyperthyroidism N Breast Cancer N Blood Transfusion N Depression Y COPD N Lung Disease N Hypothyroidism N Developmental or Behavioral Disorders N Defects or Inherited Disease N Breast Problem N Difficulty Swallowing N Anesthesia Complications N Meniere's disease N Anxiety Disorder Y Muscle, Joint, or Bone Problems N Vision or Eye Problems N Arthritis N Polyps N Infertility N Cancer N Varicosities N Stroke N Endometriosis N Bladder or Kidney Problems N High Cholesterol N Liver Disease N Headaches N Fibromyalgia N Kidney Disease N Allergies/Hayfever N Heart Problems N Ear or Hearing Problems N Hospitalizations N Thyroid Problems N GI Problems N ADD/ADHD Y Skin Problems N Eating Disorder N Anemia N Constipation N Mental Illness Y Ovarian Cancer N Diabetes N Bedwetting N Seizures/Epilepsy N Tuberculosis N Eczema N Diverticulitis N Abuse/Domestic Violence N Asthma Y Reflux/GERD N Hepatitis N Heart Disease N Pulmonary Embolism N Pre-Eclampsia N Hypertension N Chronic Ear Infections N Osteoporosis N Chicken Pox N Autism Spectrum Disorder (ASD) N Thrombophilias N Immunizations Vaccine Type Date Status Note Provider Nam e and Address Organization Details Recorded Time MMR [address] [facility] 02/12/2023 12:22:31 MMR 6 [address] [facility] 02/12/2023 12:22:32 influenza, unspecified formulation 5 completed KENNEYA NIKOLE de la fuente [facility] 02/12/2023 12:22:32 influenza, unspecified formulation 4 [address] [facility] 02/12/2023 12:22:32 Tdap 4 [address] [facility] 02/12/2023 12:22:32 DTP 1 completed TAMATHA GREEN null, [facility] 02/12/2023 12:22:32 DTP 1 completed TAMATHA GREEN null, [facility] 02/12/2023 12:22:32 DTP 5 completed TAMATHA GREEN null, [facility] 02/12/2023 12:22:32 Hep B, unspecified formulation 5 completed TAMATHA GREEN null, [facility] 02/12/2023 12:22:32 Hep B, unspecified formulation 6 completed TAMATHA GREEN null, [facility] 02/12/2023 12:22:32 Hep B, unspecified formulation 5 completed TAMATHA GREEN null, [facility] 02/12/2023 12:22:32 OPV, trivalent 1 completed TAMATHA GREEN null, [facility] 02/12/2023 12:22:32 OPV, trivalent 1 completed TAMATHA GREEN null, [facility] 02/12/2023 12:22:32 OPV, trivalent 5 completed TAMATHA GREEN null, [facility] 02/12/2023 12:22:32 OPV, trivalent 6 completed TAMATHA GREEN null, [facility] 02/12/2023 12:22:32 Td (adult), 2 Lf tetanus toxoid, preservative free, adsorbed 4 completed TAMATHA GREEN null, [facility] 02/12/2023 12:22:32 Hib (HbOC) 1 completed TAMATHA GREEN null, [facility] 02/12/2023 12:22:32 Hib ([facility] 1 completed TAMATHA GREEN null, [facility] 02/12/2023 12:22:32 Hib ([facility]) 5 completed TAMATHA GREEN null, [facility] 02/12/2023 12:22:32 DTaP 6 completed TAMATHA GREEN null, [facility] 02/12/2023 12:22:32 Tdap 4 completed Not Available [facility]/07/[facility] 14:44:50 Past Encounters Encounter ID Performer Location Encounter Start Date Encounter Closed Date Diagnosis/Indication Diagnosis SNOMED-CT Code Diagnosis ICD10 Code Diagnosis IMO Codes Diagnosis Note [id number] Justin Vargas DO [facility] ([facility]) [address] [place] [phone] 07/17/2022 08:59:22 07/27/2022 20:34:58 Depressive disorder 89344574 F32.9 Bipolar I disorder 25086 6008 F31.9 New DX. counseled pt on diagnosis, treatment options, expectatio ns.will start on seroquel nightly, pt to set up pyschiatry and counseling through [facility].f/u with me in 3-4 wkis. [id number] Justin Vargas DO [facility] ([facility]) [address] [place] [phone] 08/07/2022 08:57:32 08/13/2022 08:57:54 Depressive disorder 99283550 F32.9 improved. Bipolar I disorder 98150 6008 F31.9 tolerating the seroquel wihtimprov ed symptoms. continue current dose of 100mg. pt is on waiting list for therapy. f/u with me in 4 mts. Low back pain 098814613 M54.50 improved. continue with prn flexeril and IBU Lesion of skin of face 7806365877 06 L98.9 monitor, consider cryotherpa y if not better in 2 mts. Morbid obesity 668037451 E66.01 I counseled pt on obesity. We discussed risks and ways to loose weight. Pt will work on diet, exercise.h andout given and discussed on low sugar diet. [id number] ANIVAL VARMA-C [facility] ([facility]) [address] [place] [phone] 09/05/2022 08:13:56 09/05/2022 09:45:45 Acute otitis externa 78713084 H60.509 Stop cortispori n drops. Start Ciprodex 4 drops BID x7 days. Ear wick placed in the right ear. Discussed with patient that this will fall out on its own. Can use tylenol/ib uprofen as needed for pain. If not better in 7 days, will follow up for re-evaluat ion. [id number] Justin Vargas DO [facility]) [address] [place] [phone] 09/23/2022 11:55:58 09/23/2022 20:13:51 Bipolar I disorder 490658094 F31.9 no longer tolerating seroquel. will swtich to lamictal. 50mg daily for 1 wk, then 100mg daily for 1 wk, then 150mg daily. f/u with me in 3 wks sooner with problems. [id number] Justin Vargas DO [facility]) [address] [place] [phone] 10/15/2022 10:15:30 10/15/2022 12:52:56 Depressive disorder 13063138 F32.A improved. Bipolar I disorder 23293 6008 F31.9 doing much better on lamictal. will bump up to 200mg daily. f/u 6 wks. counseled Varicocele 15357880 I86. 1 presumed. counseled on dx. treatment options. [id number] Justin Vargas DO [facility]) [address] [place] [id number] 12/02/2022 15:15:28 12/02/2022 17:37:08 Morbid obesity 821546230 E66.01 improved, loosing weight slowly, intentiona lly. I counseled pt on obesity. We discussed risks and ways to loose weight. Pt will work on diet, exercise. Depressive disorder 3629 3755 F32.A improved. continue meds. Bipolar I disorder 56156 6004 F31.9 much better on lamictal.c ontinue 200mg daily. f/u 6 wks. counseled [id number] LAST VARMA [facility] ([facility]) [address] [place] [id number] 01/08/2023 10:05:38 01/08/2023 10:58:29 Plantar fasciitis of left foot [id number] 2551878 M72.2 Start voltaren gel four times daily as needed. Encouraged to roll frozen water bottle twice daily on foot and get plantar fascitis shoe inserts. Can also take ibuprofen TID for 10 days, PRN. If not improving in 1-2 weeks, will consider referral to podiatry. Patient agrees to plan of care. [id number] LAST VARMA [facility] ([facility]) [address] [place] [id number] 02/10/2023 09:04:57 02/10/2023 16:22:34 Right lower quadrant pain 749938429 R10.31 Chronic appendicitis 589 93334 K36 Will check labs today and will call patient with results. Discussed with patient that if labs are worse than when in ED, he will need to go back to the ED today. If labs are normal, will refer patient to general surgeon to discuss further treatment with chronic appendicit is. Discussed with patient that if pain becomes worse or fever develops, he should go to ED. Patient is agreeable to plan of care. [id number] LAST VARMA [facility] ([facility]) [address] [place] [id number] 02/12/2023 11:57:49 02/12/2023 19:13:48 Right lower quadrant pain 937169013 R10.31 General surgeon that patient was referred to was contacted and patient was declined by general surgeon office due to new and worsening pain. Due to new guarding and rebound tenderness , patient referred back to ED for further evaluation today. Patient is agreeable to go. Report was called by ANIVAL Brian to MARIA EUGENIA Castaneda at [facility] ED. Patient went via private vehicle. Will follow up with PCP pending ED discharge. [id number] Justin Vargas DO [facility] ([facility]) [address] [place] [address] [phone] 5 02/21/2023 10:04:08 02/21/2023 12:58:19 Abdominal pain [id number] R10.9 improved/r esolved with pantoprazo le and abx.still unclear dx. [id number] Justin Vargas DO [facility] ([facility]) [address] [place] [address] [phone] 04/30/2023 12:25:28 04/30/2023 13:24:06 Bipolar I disorder [id number] F31.9 04/30/23- deteriorat ed, counseled increase Lamotrigin e to 300mg, to take 150mg in the am and evening. F/u with me in 2-3 weeks. Adult atte ntion deficit hyperactivity disorder 612379935 F90.9 04/30/23- Counseled can start Vyvanse. Counseled pt on diagnosis, treatment, possible side effects. [id number] Justin Vargas DO [facility]) [address] [place] [address] [phone] 5 05/21/2023 09:43:19 05/21/2023 10:59:19 Bipolar I disorder [id number] F31.9 04/30/23- deteriorat ed, counseled increase Lamotrigin e to 300mg, to take 150mg in the am and evening. F/u with me in 2-3 weeks.05/21- Improved with Lamotrigin e 150mg BID, continue current tx. Adult atte ntion deficit hyperactivity disorder [id number] F90.9 04/30/23- Counseled can start Vyvanse. Counseled pt on diagnosis, treatment, possible side effects.- Improving with Vyvanse, continue current tx. [id number] Justin Vargas DO [facility] ([facility]) [address] [place] [address] [phone] 5 08/27/2023 11:52:40 08/27/2023 12:58:48 Bipolar I disorder [id number] F31.9 08/27/23- stable, continue Lamotrigin e.04/30/23- deteriorat ed, counseled increase Lamotrigin e to 300mg, to take 150mg in the am and evening. F/u with me in 2-3 weeks. Adult atte ntion deficit hyperactivity disorder 625003098 F90.9 08/27/23- Increase Vyvanse from 30mg to 40mg, with plan to decrease this again after life changes, career changes and routine is back. Will write 10mg today, to add to the 30mg that he just filled. Liver enzymes today. F/u Sept.- Counseled can start Vyvanse. Counseled pt on diagnosis, treatment, possible side effects. Hypoglycemia [id number] E 16.2 Lab today. [id number] Justin Vargas DO [facility] ([facility]) [address] [place] [address] [id number] 5 11/11/2023 12:18:45 11/11/2023 13:31:56 Anxiety 41789517 F41.9 11/11/23: Situationa l anxiety attack recently due to changing careers, moving, recent , having to put his dog down. I reviewed ER records. No concern for cardiac etiology. Will continue his Lamictal and Vyvanse. We will add as needed lorazepam but only for this transition al period. Continue with counseling . I want to see him in 6 weeks. Sooner if not improving. Bipolar I disorder 34227 6008 F31.9 11/11/23: Dealing with a lot of stress with multiple significan t stressors all at once this last few months. We will keep medication s the same as far as his Lamictal and Vyvanse. Follow-up 6 weeks.- stable, continue Lamotrigin e.04/30/23- deteriorat ed, counseled increase Lamotrigin e to 300mg, to take 150mg in the am and evening. F/u with me in 2-3 weeks. [id number] ANIVAL PERRY [facility] ([facility]) [address] [place] [address] [phone] 5 12/05/2023 15:37:57 12/05/2023 16:56:37 Cough [id number] R05.9 COVID-19 [id number] U07.1 Covid negative. Suspect too early since symptoms started just last night. Due to increasing positive covids in the community and pt's symptoms will treat as covid.I counseled the patient on diagnosis, treatment options, medication s, and expectatio ns. All questions were addressed. we will start paxolvid.P t is to stay home and isolate for at least 5 days from when symptoms started, and then mask in public for an additional 5 days.They were instructed to call the office or come in for Follow Up with any questions, concerns, or worsening problems. [id number] Justin Vargas DO [facility] ([facility]) [address] [place] [address] [phone] 5 01/07/2024 08:01:11 01/07/2024 17:54:10 Anxiety 66411367 F41.9 01/07/24: significan t worsening with several acute situationa l issues. will add sertraline . continue ativan prn. 4: Situationa l anxiety attack recently due to changing careers, moving, recent , having to put his dog down. I reviewed ER records. No concern for cardiac etiology. Will continue his Lamictal and Vyvanse. We will add as needed lorazepam but only for this transition al period. Continue with counseling . I want to see him in 6 weeks. Sooner if not improving. Bipolar I disorder 56588 6008 F31.9 01/07/24: stable with current acute stressors. will continue lamotrigin e.11/11/23: Dealing with a lot of stress with multiple significan t stressors all at once this last few months. We will keep medication s the same as far as his Lamictal and Vyvanse. Follow-up 6 weeks.- stable, continue Lamotrigin e.04/30/23- deteriorat ed, counseled increase Lamotrigin e to 300mg, to take 150mg in the am and evening. F/u with me in 2-3 weeks. Adult atte ntion deficit hyperactivity disorder 882806480 F90.9 01/07/24: worsening 2/2 severe stressors, will treat anxiety, continue vyvanse.09/24/23- pt called in asking to decrease back down to 30mg daily sent in RX.08/27/23- Increase Vyvanse from 30mg to 40mg, with plan to decrease this again after life changes, career changes and routine is back. Will write 10mg today, to add to the 30mg that he just filled. Liver enzymes today. F/u Sept.- Counseled can start Vyvanse. Counseled pt on diagnosis, treatment, possible side effects. 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 4-5 cm. On diagnosis. This can affect headaches and neck pain. If he feels that this is a daily issue then recommend seeing surgeon for possible excision. Recommend he work on neck and upper back exercises. [id number] ANIVAL REYNOLDS [facility] ([facility]) [address] [place] [address] [phone] 5 01/23/2024 14:50:49 01/23/2024 15:30:14 Abdominal pain [id number] R10.9 [id number] Justin Vargas DO [facility] ([facility]) [address] [place] [address] [phone] 5 02/11/2024 08:15:23 02/12/2024 13:39:10 Anxiety 05174083 F41.9 02/11/24: much improved. Things improving at home and at work. no change in meds. continue sertraline , and lamotrigin e. continue prn lorazepam. 01/07/24: significan t worsening with several acute situationa l issues. will add sertraline . continue ativan prn. 4: Situationa l anxiety attack recently due to changing careers, moving, recent , having to put his dog down. I reviewed ER records. No concern for cardiac etiology. Will continue his Lamictal and Vyvanse. We will add as needed lorazepam but only for this transition al period. Continue with counseling . I want to see him in 6 weeks. Sooner if not improving. Bipolar I disorder 15729 6008 F31.9 02/11/24; Improved. conitnue lamotrigin e and counseling .01/07/24: stable with current acute stressors. will continue lamotrigin e.11/11/23: Dealing with a lot of stress with multiple significan t stressors all at once this last few months. We will keep medication s the same as far as his Lamictal and Vyvanse. Follow-up 6 weeks.- stable, continue Lamotrigin e.04/30/23- deteriorat ed, counseled increase Lamotrigin e to 300mg, to take 150mg in the am and evening. F/u with me in 2-3 weeks. Adult atte ntion deficit hyperactivity disorder 769468128 F90.9 02/11/24:i mproved. continue vyvance 30mg.: worsening 2/2 severe stressors, will treat anxiety, continue vyvanse.09/24/23- pt called in asking to decrease back down to 30mg daily sent in RX.08/27/23- Increase Vyvanse from 30mg to 40mg, with plan to decrease this again after life changes, career changes and routine is back. Will write 10mg today, to add to the 30mg that he just filled. Liver enzymes today. F/u Sept.- Counseled can start Vyvanse. Counseled pt on diagnosis, treatment, possible side effects. [id number] ANIVAL PERRY [facility] ([facility]) [address] [place] [address] [id number] 5 06/28/2024 09:10:46 06/28/2024 09:27:25 Acute pansinusitis 1244561 J01.40 Discussed use of antibiotic . Take with food.May use Anish's nasal inserts and also apply on chest. Push oral fluids. Consider nasal saline rinses and otc decongesta nt.Use tylenol/mo kraig for grullon. [id number] Justin Vargas DO [facility] ([facility]) [address] [place] [address] [phone] 5 07/28/2024 16:46:34 07/29/2024 07:26:19 Adult attention deficit hyperactivity disorder 591731290 F90.9 02/11/24:i mproved. continue vyvance 30mg.: worsening 2/2 severe stressors, will treat anxiety, continue vyvanse.09/24/23- pt called in asking to decrease back down to 30mg daily sent in RX.08/27/23- Increase Vyvanse from 30mg to 40mg, with plan to decrease this again after life changes, career changes and routine is back. Will write 10mg today, to add to the 30mg that he just filled. Liver enzymes today. F/u Sept.- Counseled can start Vyvanse. Counseled pt on diagnosis, treatment, possible side effects. Bipolar I disorder 07360 6008 F31.9 07/28/24: Counseled we want to take a break from SSRI, will start weaning off Sertraline . Continue Lamictal. Consider Depakote 250mg ER BID.; Improved. conitnue lamotrigin e and counseling .01/07/24: stable with current acute stressors. will continue lamotrigin e.11/11/23: Dealing with a lot of stress with multiple significan t stressors all at once this last few months. We will keep medication s the same as far as his Lamictal and Vyvanse. Follow-up 6 weeks.- stable, continue Lamotrigin e.04/30/23- deteriorat ed, counseled increase Lamotrigin e to 300mg, to take 150mg in the am and evening. F/u with me in 2-3 weeks. Depressive disorder 3548 9007 F32.A Anxiety 68669327 F41.9 02/11/24: much improved. Things improving at home and at work. no change in meds. continue sertraline , and lamotrigin e. continue prn lorazepam. 01/07/24: significan t worsening with several acute situationa l issues. will add sertraline . continue ativan prn. 4: Situationa l anxiety attack recently due to changing careers, moving, recent , having to put his dog down. I reviewed ER records. No concern for cardiac etiology. Will continue his Lamictal and Vyvanse. We will add as needed lorazepam but only for this transition al period. Continue with counseling . I want to see him in 6 weeks. Sooner if not improving. Pain of right hand [id number] M79.641 07/28/24: referral to Hand Surgeon at [facility]. [id number] Justin Vargas DO [facility] ([facility]) [address] [place] [address] 5 08/31/2024 08:23:07 08/31/2024 12:15:22 Adult attention deficit hyperactivity disorder 645212296 F90.9 08/31/24: Off Vyvanse of his own accord, feels better without it, will remain off stimulant at this time.02/10:improv ed. continue Vyvanse 30mg.: worsening 2/2 severe stressors, will treat anxiety, continue vyvanse.09/24/23- pt called in asking to decrease back down to 30mg daily sent in RX.08/27/23- Increase Vyvanse from 30mg to 40mg, with plan to decrease this again after life changes, career changes and routine is back. Will write 10mg today, to add to the 30mg that he just filled. Liver enzymes today. F/u Sept.- Counseled can start Vyvanse. Counseled pt on diagnosis, treatment, possible side effects. Anxiety 83209965 F41.9 08/31/24: Stable, off Sertraline . Continues Lamictal.1 : much improved. Things improving at home and at work. no change in meds. continue sertraline , and lamotrigin e. continue prn lorazepam. 01/07/24: significan t worsening with several acute situationa l issues. will add sertraline . continue ativan prn. 4: Situationa l anxiety attack recently due to changing careers, moving, recent , having to put his dog down. I reviewed ER records. No concern for cardiac etiology. Will continue his Lamictal and Vyvanse. We will add as needed lorazepam but only for this transition al period. Continue with counseling . I want to see him in 6 weeks. Sooner if not improving. Bipolar I disorder 18599 6008 F31.9 08/31/24: Stable, continue Lamictal 150mg BID.07/28/24 : Counseled we want to take a break from SSRI, will start weaning off Sertraline . Continue Lamictal. Consider Depakote 250mg ER BID.; Improved. continue lamotrigin e and counseling .01/07/24: stable with current acute stressors. will continue lamotrigin e.11/11/23: Dealing with a lot of stress with multiple significan t stressors all at once this last few months. We will keep medication s the same as far as his Lamictal and Vyvanse. Follow-up 6 weeks.- stable, continue Lamotrigin e.04/30/23- deteriorat ed, counseled increase Lamotrigin e to 300mg, to take 150mg in the am and evening. F/u with me in 2-3 weeks. Silviano womack requested [id number] Z30.2 [id number] 08/31/24: Pt requesting Vasectomy after discussing with spouse at length, will refer to Dr. Alejo, pt is familiar with him as spouse has used for OB care previously . [id number] Justin Vargas DO [facility] ([facility]) [address] [place] [address] [phone] 09/28/2024 08:18:48 09/28/2024 12:02:03 Adult attention deficit hyperactivity disorder 764154126 F90.9 09/28/24: Deteriorat ing, restart Vyvanse, but at lower dose. will try to keep at 20mg.: Off Vyvanse of his own accord, feels better without it, will remain off stimulant at this time.02/10:improv ed. continue Vyvanse 30mg.: worsening 2/2 severe stressors, will treat anxiety, continue vyvanse.09/24/23- pt called in asking to decrease back down to 30mg daily sent in RX.08/27/23- Increase Vyvanse from 30mg to 40mg, with plan to decrease this again after life changes, career changes and routine is back. Will write 10mg today, to add to the 30mg that he just filled. Liver enzymes today. F/u Sept.- Counseled can start Vyvanse. Counseled pt on diagnosis, treatment, possible side effects. Anxiety 57426600 F41.9 Stable, off Sertraline . Continues Lamictal.1 : much improved. Things improving at home and at work. no change in meds. continue sertraline , and lamotrigin e. continue prn lorazepam. 01/07/24: significan t worsening with several acute situationa l issues. will add sertraline . continue ativan prn. 4: Situationa l anxiety attack recently due to changing careers, moving, recent , having to put his dog down. I reviewed ER records. No concern for cardiac etiology. Will continue his Lamictal and Vyvanse. We will add as needed lorazepam but only for this transition al period. Continue with counseling . I want to see him in 6 weeks. Sooner if not improving. Bipolar I disorder 33907 6008 F31.9 Stable, continue Lamictal 150mg BID.07/28/24 : Counseled we want to take a break from SSRI, will start weaning off Sertraline . Continue Lamictal. Consider Depakote 250mg ER BID.; Improved. continue lamotrigin e and counseling .01/07/24: stable with current acute stressors. will continue lamotrigin e.11/11/23: Dealing with a lot of stress with multiple significan t stressors all at once this last few months. We will keep medication s the same as far as his Lamictal and Vyvanse. Follow-up 6 weeks.- stable, continue Lamotrigin e.04/30/23- deteriorat ed, counseled increase Lamotrigin e to 300mg, to take 150mg in the am and evening. F/u with me in 2-3 weeks. Morbid obesity 959027024 E66.01 09/28/24: BMI is greater than 40, pt has failed multiple diets in the last 2 years. Counseled on diet, exercise, start Zepbound wkly, f/u 1 month. Plan to see once monthly for medical management for weight loss. [id number] Justin Vargas DO [facility] ([facility]) [address] [place] [address] [phone] 5 10/19/2024 08:15:08 10/19/2024 08:49:35 Morbid obesity 044360651 E66.01 10/19/24: Zepbound denied, will order Ozempic, also sleep study to investigat e sleep apnea.09/28: BMI is greater than 40, pt has failed multiple diets in the last 2 years. Counseled on diet, exercise, start Zepbound wkly, f/u 1 month. Plan to see once monthly for medical management for weight loss. Obstructiv e sleep apnea syndrome 81991759 G47.33 [id number] Concern for. STOP BANG score 5, high risk, BMI 41, will proceed with home sleep study. [id number] Justin Vargas DO [facility] ([facility]) [address] [place] [address] [phone] 5 10/27/2024 08:26:02 10/27/2024 12:06:18 Adult attention deficit hyperactivity disorder 154777575 F90.9 10/27/24: Vyvanse not helping. Will change to Dextroamph etamine 20mg each am. Counseled on diagnosis, treatment options including medication s and possible side effects.02/12: Deteriorat ing, restart Vyvanse, but at lower dose. will try to keep at 20mg.: Off Vyvanse of his own accord, feels better without it, will remain off stimulant at this time.02/10:improv ed. continue Vyvanse 30mg.: worsening 2/2 severe stressors, will treat anxiety, continue vyvanse.09/24/23- pt called in asking to decrease back down to 30mg daily sent in RX.08/27/23- Increase Vyvanse from 30mg to 40mg, with plan to decrease this again after life changes, career changes and routine is back. Will write 10mg today, to add to the 30mg that he just filled. Liver enzymes today. F/u Sept.- Counseled can start Vyvanse. Counseled pt on diagnosis, treatment, possible side effects. Morbid obesity 690261425 E66.01 10/27/24: Tolerating Ozempic well, having success with weight loss. 5: Zepbound denied, will order Ozempic, also sleep study to investigat e sleep apnea.09/28: BMI is greater than 40, pt has failed multiple diets in the last 2 years. Counseled on diet, exercise, start Zepbound wkly, f/u 1 month. Plan to see once monthly for medical management for weight loss. [id number] Justin Vargas DO [facility] ([facility]) [address] [place] [address] [phone] 5 11/24/2024 08:19:06 11/30/2024 12:36:05 Adult attention deficit hyperactivity disorder 383608536 F90.9 11/24/24: Continue Dextroamph etamine 20mg, we don't want to adjust this today, as we are decreasing his Lamotrigin e today.: Vyvanse not helping. Will change to Dextroamph etamine 20mg each am. Counseled on diagnosis, treatment options including medication s and possible side effects.02/12: Deteriorat ing, restart Vyvanse, but at lower dose. will try to keep at 20mg.: Off Vyvanse of his own accord, feels better without it, will remain off stimulant at this time.02/10:improv ed. continue Vyvanse 30mg.: worsening 2/2 severe stressors, will treat anxiety, continue vyvanse. Morbid obesity 938374092 E66.01 11/24/24: Continue Ozempic 0.25mg, if doing well when he is finished with current pen ok to increase to 0.5mg.: Tolerating Ozempic well, having success with weight loss. 5: Zepbound denied, will order Ozempic, also sleep study to investigat e sleep apnea.09/28: BMI is greater than 40, pt has failed multiple diets in the last 2 years. Counseled on diet, exercise, start Zepbound wkly, f/u 1 month. Plan to see once monthly for medical management for weight loss. Bipolar I disorder 27515 6008 F31.9 11/24/24: Counseled decrease Lamotrigin e to 100mg BID.07/28/24 : Counseled we want to take a break from SSRI, will start weaning off Sertraline . Continue Lamictal. Consider Depakote 250mg ER BID.; Improved. continue lamotrigin e and counseling .01/07/24: stable with current acute stressors. will continue lamotrigin e.11/11/23: Dealing with a lot of stress with multiple significan t stressors all at once this last few months. We will keep medication s the same as far as his Lamictal and Vyvanse. Follow-up 6 weeks.- stable, continue Lamotrigin e.04/30/23- deteriorat ed, counseled increase Lamotrigin e to 300mg, to take 150mg in the am and evening. F/u with me in 2-3 weeks. [id number] Justin Vargas DO [facility] ([facility]) [address] [place] [address] [phone] 5 02/07/2025 14:07:47 02/08/2025 14:34:26 Active or passive immunization [id number] Z23 Preventive procedure 169 202778 Z00.00 [id number] Labs today, phone f/u. Counseled on diet, exercise, mental health. Discussed age appropriat e cancer screenings . Adult atte ntion deficit hyperactivity disorder 877967314 F90.9 02/07/25: Increase Dextroamph etamine to 30mg. Counseled. 11/24/24: Continue Dextroamph etamine 20mg, we don't want to adjust this today, as we are decreasing his Lamotrigin e today.: Vyvanse not helping. Will change to Dextroamph etamine 20mg each am. Counseled on diagnosis, treatment options including medication s and possible side effects.02/12: Deteriorat ing, restart Vyvanse, but at lower dose. will try to keep at 20mg.: Off Vyvanse of his own accord, feels better without it, will remain off stimulant at this time.02/10:improv ed. continue Vyvanse 30mg.: worsening 2/2 severe stressors, will treat anxiety, continue vyvanse. Bipolar I disorder 72113 6008 F31.9 02/07/25: Pt has weaned himself off Lamotrigin e, mood improved. Will remain off this at this time. 5: Counseled decrease Lamotrigin e to 100mg BID.07/28/24 : Counseled we want to take a break from SSRI, will start weaning off Sertraline . Continue Lamictal. Consider Depakote 250mg ER BID.; Improved. continue lamotrigin e and counseling .01/07/24: stable with current acute stressors. will continue lamotrigin e.11/11/23: Dealing with a lot of stress with multiple significan t stressors all at once this last few months. We will keep medication s the same as far as his Lamictal and Vyvanse. Follow-up 6 weeks.- stable, continue Lamotrigin e.04/30/23- deteriorat ed, counseled increase Lamotrigin e to 300mg, to take 150mg in the am and evening. F/u with me in 2-3 weeks. Morbid obesity 949857941 E66.01 02/07/25: Continue Ozempic 0.25mg, will start routine exercise at the gym when he starts his new position with [employer].11/24/24 : Continue Ozempic 0.25mg, if doing well when he is finished with current pen ok to increase to 0.5mg.: Tolerating Ozempic well, having success with weight loss. 5: Zepbound denied, will order Ozempic, also sleep study to investigat e sleep apnea.09/28: BMI is greater than 40, pt has failed multiple diets in the last 2 years. Counseled on diet, exercise, start Zepbound wkly, f/u 1 month. Plan to see once monthly for medical management for weight loss. [id number] TALIA GUERRERO APRN [facility] ([facility]) [address] [place] [address] [phone] 5 02/23/2025 08:01:04 02/23/2025 12:51:19 Acute upper respiratory infection 30015805 J06.9 486716 Disease ca used by Rhinovirus 06581355 B34.8 11928 Streptococ nnamdi sore throat 25178928 J02.0 1552570 Health Concerns Section Related Observation LastModified by Organization Detai ls LastModified Time None Recorded Concern Status LastModified by Organization Details LastModified Time None Recorded Advance Directives Directive None Recorded Payers Insurance Date Sequence Insurance Name Policy Number Policy [place] Covered Member ID [place] Member ID Guarantor Name 02/23/2025 1 [employer] [place] (MEDICA[place] REPLACEMENT - HMO) [id number] Keli Thomson [id number] Keli Thomson Notes Date Note Type Note Provider Name and Address Organization Details Recorded Time 10/19/2024 text/html ROS as noted in the HPI Pt presents to discuss obesity, wt loss options We ordered Zepbound on 09/28/24, insurance denied this with [place]. He had sleep study around age 21 to investigate his insomnia, negative for [employer]. Sleeping 4-5 hours per sleep, chronically suffering from insomnia.He easily falls asleep when riding passenger in a car.Spouse has told him he snores.Nek circumference 19inches. Justin Vargas DO [address] [place] [address], [phone], [facility] 10/21/2024 09:59:20 10/27/2024 text/html ROS as noted in the HPI Pt presents for recheck on ADHD, Obesity. He wants to discuss the Vyvanse, doesn't feel it is doing much of anything for him.He is seeing therapy, feels this is going well, has his 4th appt this week. He is doing well on the Ozempic, slight nausea noted, but has lost 11 lbs since 10/19/24.He finds he is not having cravings, doesn't have an issue wanting sugar. Justin Vargas DO [address] [place] [address], [phone], [facility] 10/27/2024 09:13:28 11/24/2024 text/html ROS as noted in the HPI Pt presents for recheck 1 month plan at last visit:1. Adult attention deficit hyperactivity disorder -10/27/24: Vyvanse not helping. Will change to Dextroamphetamine 20mg each am. Counseled on diagnosis, treatment options including medications and possible side effects.F90.9: Attention-deficit hyperactivity disorder, unspecified typedextroamphetamine- amphetamine ER 20 mg 24hr capsule,extend release - Take 1 capsule(s) every day by oral route in the morning, for ADHD. Qty: (30) capsule Refills: 0 Pharmacy: [facility]/PHARMACY #[id number]. Morbid obesity -10/27/24: Tolerating Ozempic well, having success with weight loss.10/19/24: Zepbound denied, will order Ozempic, also sleep study to investigate sleep apnea.09/28/24: BMI is greater than 40, pt has failed multiple diets in the last 2 years. Counseled on diet, exercise, start Zepbound wkly, f/u 1 month. Plan to see once monthly for medical management for weight loss.E66.01: Morbid (severe) obesity due to excess calories == He has had some significant stressors, nothing specific, the past week, was really low, now mood increasing and improving. He wants to discuss changing meds and doses.He feels that the Adderall is not as effective as he would like.He also c/o that the Lamotrigine seems to make depression worse when he has an episode of a low He continues to see therapist for his mental health. He reports she is screening him for OCD. He would like to increase the Ozempic, currently on 2.5mg, tolerating well. Justin Vargas, DO [address] [place], [phone], [facility] 11/24/2024 09:15:07 02/07/2025 text/html Annual WellnessReported by PatientSocial/Behavior al HistoryFor diet and nutrition, patient reportsdiscussed diet improvement. For fracture risk, patient reportsno history of fractures,no recent explained fracture,no sudden unexplained fractures, andno previous musculoskeletal injuries. For physical activity, patient reportsexercises on a regular basis,recent increase in physical activity, andgood physical condition. For additional lifestyle factors, patient reportsno tobacco useandno alcohol intake.Mental Status:For depression risk, patient reportsnever feels sad, empty, or tearful,no loss of interest in activities,no significant changes in weight,no sleep disturbances or insomnia,no agitation,no loss of energy,no feelings of worthlessness or guilt,no thoughts of suicide,no history of depression, andno history of mood disorders(depression sx are controlled with current meds).Functional AbilityFor hearing, patient reportsno loss of hearing. For vision, patient reportsno vision problems.ROS as noted in the HPI Pt presents for annual exam Last labs done 04/12/23 He has weaned off the Lamotrigine and he is feeling better off the medication. Has been off Lamotrigine for approximately 2 months now.He reports depression is significantly better.He admits that he is switching jobs and this will be better d/t better hours and more pay, [employer] with [employer], 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 He is doing well with the Adderall but feels that it wears off and his ADHD kicks in after work at home. Would like to evaluate switching medication or adding a second dose of Adderall during the day. 8 pound weight loss since last visit 11/24/24. He reports improvement in binge eating, portion control, and improvement in healthy food options. Denies incorporating exercise. New job comes with gym membership, and he is interested in beginning exercising and staying at 0.5mg Ozempic dose for the time being. Justin Vargas, [address] [place] [address], [phone], [facility] 02/07/2025 15:36:08 02/23/2025 text/html Walk inPossible strep throat. Fever, sore throat, run down, aches & pain. x1 day. Headache, muscle pain. TAILA GUERRERO, [employer] [address] [place], [phone], [facility] 02/23/2025 12:44:20
--- OUTSIDE RECORDS SUMMARY | 2025-04-12 16:52 | XMS_ITS | Continuity of Care Document ---
Author Organization ERIC [facility] [place], [place], [facility] ([facility]) Address [address] [place] [address] Care Team Providers Care Microbiology Technician Name Role Phone JUSTIN EDMOND Primary Care Provider Assessment No assessment recorded. Plan of Treatment Reminders Order Date Submit Date Provider Last Modified By Organization Details Last Modified Time Details Appointments RECHECK 2025 02:00P Ivonne Edmond, DO Not available Not available Not available Lab pharyngea l pathogens DNA and RNA panel, BABITA+non-p robe, throat 2024 025 [email or web address] [facility] ([facility]), [address] [place], [address], 02/23/2025 11:55:07 Referral None recorded. Procedures None recorded. Surgeries None recorded. Imaging None recorded. Medication Orders amoxicill in 500 mg capsule 2024 025 [facility]/Pharmacy #[id number], [address] [facility] [address], [address], 03/12/2025 05:01:57 Patient TargetsNo targets recorded. Patient Instructions Encounter Date Encounter Id Patient Instructions Last Modified By Organization Details Last Modified Time 02/23/2025 [id number] May take OTC Dayquil. Increase fluids. Follow up for worsening [email or web address] Not available 02/23/2025 12:44:08 Reason for Referral None Reported. Results Created Date Observation Date Name Description Value Unit Range Abnormal Flag Note LastModifiedBy Organization Detail LastModifiedTime 02/24/20 25 02/23/2025 phary ngeal patho gens DNA and RNA panel , BABITA+n on-pr obe, throa t Strep A positi ve Not Available [facility] ([facility]) [address] [place] [address], [phone], 02/23/2025 08:40:26 02/24/20 25 02/23/2025 phary ngeal patho gens DNA and RNA panel , BABITA+n on-pr obe, throa t Rhinovirus positi ve Not Available [facility] ([facility]) [address] [place] [address], [phone], 02/23/2025 08:40:26 02/24/20 25 02/23/2025 phary ngeal patho gens DNA and RNA panel , BABITA+n on-pr obe, throa t RSV negati ve Not Available [facility] ([facility]) [address] [place] [address], [phone], 02/23/2025 08:40:26 02/24/20 25 02/23/2025 phary ngeal patho gens DNA and RNA panel , BABITA+n on-pr obe, throa t Influenza A negati ve Not Available [facility] ([facility]) [address] [place] [address], [phone], 02/23/2025 08:40:26 02/24/20 25 02/23/2025 phary ngeal patho gens DNA and RNA panel , BABITA+n on-pr obe, throa t Influenza B negati ve Not Available [facility] ([facility]) [address] [place] [address], [phone], 02/23/2025 08:40:26 02/24/20 25 02/23/2025 phary ngeal patho gens DNA and RNA panel , BABITA+n on-pr obe, throa t Strep A positi ve Not Available [facility] ([facility]) [address] [place], [address], 02/23/2025 08:10:36 02/24/20 25 02/23/2025 phary ngeal patho gens DNA and RNA panel , BABITA+n on-pr obe, throa t Rhinovirus positi ve Not Available [facility] ([facility]) [address] [place] [address], [phone], 02/23/2025 08:10:36 02/24/2002/23/2025 phary ngeal patho gens DNA and RNA panel , BABITA+n on-pr obe, throa t RSV negati ve Not Available [facility] ([facility]) [address] [place] [address], [phone], 02/23/2025 08:10:36 02/24/2002/23/2025 phary ngeal patho gens DNA and RNA panel , BABITA+n on-pr obe, throa t Influenza A negati ve Not Available [facility] ([facility]) [address] [place] [address], [phone], 02/23/2025 08:10:36 02/24/2002/23/2025 phary ngeal patho gens DNA and RNA panel , BABITA+n on-pr obe, throa t Influenza B negati ve Not Available [facility] ([facility]) [address] [place] [address], [phone], 02/23/2025 08:10:36 Result Notes None recorded. Problems Name Problem SNOMED Code Status Onset Date Resolution Date Notes Provider Name and Address Organization Details Recorded Time History of bacterial infection 206087501339 101 Active 2019 HISTORY OF [facility] [place] [facility]ED FEVER; ANIVAL PERRY [address] [place], [phone], [facility], Matthias 5 09:19:01 History of respirato ry disease 177348638 Active 2019 HISTORY OF ASTHMA [address], [address] [place] [address] 5, [facility] 5 09:19:01 Depressiv e disorder 81564583 Active [address], [address] [place] [address] 5, [facility] 5 09:19:01 Bipolar I disorder 258204442 Active [address], [address] [place] [address], [facility] 5 09:18:48 Morbid obesity 161356333 Active [address], [address] [place] [address], [facility] 5 09:19:01 Adult attention deficit hyperacti vity disorder 805042154 Active [address], [address] [place] [address], [facility] 5 09:18:38 Anxiety 70054685 Active [address], [address] [place] [address], [facility] 5 09:18:42 Lipoma of skin and subcutane ous tissue of neck 12221628 Active 2023 [place] [address], [facility] 5 09:19:01 Problem Notes None recorded. Medical Equipment [...] and Address Organization Details Last Updated DateTime 182.88 cm 38 kg/m2 268502. 86 g 97 % 107 /min 100 [degF] 126/78 mm[Hg] Jayla Diaz [facility] 08:08:40 Social History Question Answer Notes LastModified by Organizat ion Details LastModified Time Tobacco Smoking Status Former Smoker Lucero [facility] 06/28/2024 09:15:43 Which Illicit Or Recreational Drugs Have You Used? Izabella an Information not available 07/17/2022 What Was The Date Of Your Most Recent Tobacco Screening? 02/23/2025 [email or web address] Information not available 02/23/2025 Sex: Unknown Functional Status Question Answer Note LastModified by Organizat ion Details LastModified Time Do you use any illicit or recreational drugs? Yes [email or web address] Information not available 07/17/2022 Do you or have you ever used any other forms of tobacco or nicotine? Yes [email or web address] Information not available 07/17/2022 What is your level of alcohol consumption? Occasional [email or web address] Information not available 07/17/2022 Do you or have you ever used smokeless tobacco? Current snuff user [email or web address] Information not available 07/17/2022 Mental Status None [...] MMR 5 completed KELLY de la fuente [facility]aneC[facility]ane 02/12/2023 12:22:31 MMR 6 completed KELLY de la fuente [facility]ane 02/12/2023 12:22:32 influenza, unspecified formulation 5 completed KELLY de la fuente [facility] L.LJeaneCJeane 02/12/2023 12:22:32 influenza, unspecified formulation 4 completed TAMATHA GREEN null, [facility] 02/12/2023 12:22:32 Tdap 4 completed TAMATHA GREEN null, [facility] 02/12/2023 12:22:32 DTP 1 completed TAMATHA GREEN null, [facility] 02/12/2023 12:22:32 DTP 1 completed TAMATHA GREEN null, [facility] 02/12/2023 12:22:32 DTP 5 completed TAMATHA GREEN null, [facility] 02/12/2023 12:22:32 Hep B, unspecified formulation 5 completed TAMATHA GREEN null, [facility] 02/12/2023 12:22:32 Hep B, unspecified formulation 6 completed TAMATHA GREEN null, [facility] 02/12/2023 12:22:32 Hep B, unspecified formulation 5 completed TAMATHA GREEN null, [facility] 02/12/2023 12:22:32 OPV, trivalent 1 completed TAMATHA GREEN null, [facility] 02/12/2023 12:22:32 OPV, trivalent 1 completed TAMATHA GREEN null, [facility] 02/12/2023 12:22:32 OPV, trivalent 5 completed TAMATHA GREEN null, [facility] 02/12/2023 12:22:32 OPV, trivalent 6 completed TAMATHA GREEN [facility] 02/12/2023 12:22:32 Td (adult), 2 Lf tetanus toxoid, preservative free, adsorbed 4 completed TAMATHA GREEN [facility], [facility] 02/12/2023 12:22:32 Hib ([facility] 02/12/2023 12:22:32 Hib ([facility]) [facility] 02/12/2023 12:22:32 Hib ([facility]) 5 completed TOBINATHA GREEN [facility] 02/12/2023 12:22:32 DTaP 6 [facility] 02/12/2023 12:22:32 Tdap 4 completed Not Available [facility] 02/07/2025 14:44:50 Past Encounters Encounter ID Performer Location Encounter Start Date Encounter Closed Date Diagnosis/Indication Diagnosis SNOMED-CT Code Diagnosis ICD10 Code Diagnosis IMO Codes Diagnosis Note [id number] Justin Edmond DO [facility] ([facility]) [address] [place] [phone] 02/07/2025 14:07:47 02/08/2025 14:34:26 Active or passive immunization 338410486 Z23 Preventive procedure 169 094654 Z00.00 [id number] Labs today, phone f/u. Counseled on diet, exercise, mental health. Discussed age appropriat e cancer screenings . Adult atte ntion deficit hyperactivity disorder 229551868 F90.9 02/07/25: Increase Dextroamph etamine to 30mg. [...] treat anxiety, continue vyvanse. Bipolar I disorder 12930 6008 F31.9 02/07/25: Pt has weaned himself [...] with me in 2-3 weeks. Morbid obesity 593836447 E66.01 02/07/25: Continue Ozempic 0.25mg, will start [...] monthly for medical management for weight loss. [id number] TALIA GUERRERO APRN [facility] ([facility]) [address] [place] [address] 02/23/2025 08:01:04 02/23/2025 12:51:19 Acute upper respiratory infection 18858353 J06.9 416322 Disease ca used by Rhinovirus 58750097 B34.8 21063 Streptococ nnamdi sore throat 26462435 J02.0 5619906 Health Concerns Section Related Observation LastModified by Organization Detai ls LastModified Time None Recorded Concern Status LastModified by Organization Details LastModified Time None Recorded Payers Encounter Date Sequence Insurance Name Policy Number Policy [place] Covered Member ID [place] Member ID Guarantor Name 02/23/2025 1 [employer] [place]AC[place] - [place]MO) [id number] Keli Thomson [id number] Keli Thomson Notes Date Note Type Note Provider Name and Address Organization Details Recorded Time 02/23/2025 text/html Walk inPossible strep throat. Fever, sore throat, run down, aches & pain. x1 day. Headache, muscle pain. TALIA GUERRERO APRN [address] [place], [address], [facility] 02/23/2025 12:44:20
--- OUTSIDE RECORDS SUMMARY | 2025-04-12 16:52 | XMS_ITS | Continuity of Care Document ---
Author Organization ERIC [facility] Matthias Gastelum, [facility] ([facility]) Address [address] [place] [address] Care Team Providers Care Transportation Department Head Name Role Phone JUSTIN EDMOND Primary Care Provider Assessment Encounter Date Assessment Date Assessment LastModified by Organization Details LastModified Time 02/07/2025 02/07/2025 Document scribed by Zane Arriaga [employer]. I was present during interview and exam. I have reviewed and agree with above documentation . Dr. Justin Edmond. [email or web address] Not available 02/07/2025 14:48:51 Plan of Treatment Reminders Order Date Submit Date Provider Last Modified By Organization Details Last Modified Time Details Appointments RECHECK 2025 02:00P Ivonne Edmond, DO Not available Not available Not available Lab CMP, serum or plasma 2024 025 [email or web address] [facility], [address], [address], [place], [address], 02/21/2025 09:29:21 lipid panel, blood 2024 025 [email or web address] [facility], [address], [address], [place], [address], 02/21/2025 09:29:21 CBC 2024 025 [email or web address] [facility], [address], [address], [place], [address], 02/21/2025 09:29:21 Referral None recorded . Procedures None recorded . Surgeries None recorded . Imaging None recorded . Medication Orders dextroam phetamin e-amphet amine ER 30 mg 24hr capsule, extend release 2024 025 [id number], [address], [facility] [address], [place], [address], 02/07/2025 15:36:06 Patient TargetsNo targets recorded. Patient InstructionsNo instructions recorded. Reason for Referral None Reported. Problems Name Problem SNOMED Code Status Onset Date Resolution Date Notes Provider Name and Address Organization Details Recorded Time History of bacterial infection 076882297241 101 Active 2019 HISTORY OF [facility]; [address], [address], [facility], LJeaneLJeaneCJeane 5 09:19:01 History of respirato ry disease 284531832 Active 2019 HISTORY OF ASTHMA [address], [address], [facility], LVikCJeane 5 09:19:01 Depressiv e disorder 14044451 Active [address], [address], [facility], LJeaneLJeaneCJeane 5 09:19:01 Bipolar I disorder 038422955 Active [address], [address], [facility], LJeaneLJeaneCJeane 5 09:18:48 Morbid obesity 611445914 Active [address], [address], [facility], LJeaneLJeaneCJeane 5 09:19:01 Adult attention deficit hyperacti vity disorder 072373166 Active [address], [address], [facility], LAmparo 5 09:18:38 Anxiety 92608161 Active [address], [address], [facility], L[place] 5 09:18:42 Lipoma of skin and subcutane ous tissue of neck 28747109 Active [address], [address], [facility], LAm[place] 5 09:19:01 Problem Notes None recorded. Medical [...] Organization Details Last Updated DateTime 182.88 cm 38.1 kg/m2 347744. 46 g 99 % 92 /min 18 /min 120/82 mm[Hg] Kady Dinh [facility] 14:35:12 Social History Question Answer Notes LastModified by [employer] ([employer]) Details LastModified Time Tobacco Smoking Status Former Smoker Lucero Soriajohnson de [employer] [facility] 06/28/2024 09:15:43 Which Illicit Or Recreational Drugs Have You Used? Izabella Information not available 07/17/2022 What Was The Date Of Your Most Recent Tobacco Screening? 02/23/2025 [email or web address] Information not available 02/23/2025 Sex: Unknown Functional Status Question Answer Note LastModified by [employer] ([employer]) Details LastModified Time Do you use any illicit or recreational drugs? Yes [email or web address] Information not available 07/17/2022 Do you or have you ever used any other forms of tobacco or nicotine? Yes [email or web address] Information not available 07/17/2022 What is your level of alcohol consumption? Occasional [email or web address] Information not available 07/17/2022 Do you or have you ever used smokeless tobacco? Current snuff user [email or web address] Information not available 07/17/2022 Mental Status None [...] Organization Details Recorded Time MMR 5 completed TAMATHA GREEN [facility] 02/12/2023 12:22:31 MMR 6 completed TAMATHA GREEN [facility] 02/12/2023 12:22:32 influenza, unspecified formulation 5 completed TAMATHA GREEN [facility] 02/12/2023 12:22:32 influenza, unspecified formulation 4 completed TAMATHA GREEN [facility] 02/12/2023 12:22:32 Tdap 4 completed TAMATHA GREEN [facility] 02/12/2023 12:22:32 DTP 1 completed TAMATHA GREEN [facility] 02/12/2023 12:22:32 DTP 1 completed TAMATHA GREEN [facility] 02/12/2023 12:22:32 DTP 5 completed TAMATHA GREEN [facility] 02/12/2023 12:22:32 Hep B, unspecified formulation 5 completed TAMATHA GREEN [facility] 02/12/2023 12:22:32 Hep B, unspecified formulation 6 completed TAMATHA GREEN null, [facility] 02/12/2023 12:22:32 Hep B, unspecified formulation 5 completed TAMATHA GREEN null, [facility] 02/12/2023 12:22:32 OPV, trivalent 1 completed TAMATHA GREEN null, [facility] 02/12/2023 12:22:32 OPV, trivalent 1 completed TAMATHA GREEN null, [facility] 02/12/2023 12:22:32 OPV, trivalent 5 completed TAMATHA GREEN null, [facility] 02/12/2023 12:22:32 OPV, trivalent 6 completed [facility] 02/12/2023 12:22:32 Td (adult), 2 Lf tetanus toxoid, preservative free, adsorbed 4 completed [facility] 02/12/2023 12:22:32 Hib ([facility]) 1 completed [facility] 02/12/2023 12:22:32 Hib ([facility]) 1 completed TAMATHA GREEN null, [facility] 02/12/2023 12:22:32 Hib ([facility]) 5 completed TAMATHA GREEN null, [facility] 02/12/2023 12:22:32 DTaP 6 completed [facility] 02/12/2023 12:22:32 Tdap 4 completed Not Available [facility] 02/07/2025 14:44:50 Past Encounters Encounter ID Performer Location Encounter Start Date Encounter Closed Date Diagnosis/Indication Diagnosis SNOMED-CT Code Diagnosis ICD10 Code Diagnosis IMO Codes Diagnosis Note [id number] Justin Edmond DO [facility] [address] [place] [address] 02/07/2025 14:07:47 02/08/2025 14:34:26 Active or passive immunization 482689621 Z23 Preventive procedure 169 746995 Z00.00 [id number] Labs today, phone f/u. Counseled on diet, exercise, mental health. Discussed age appropriat e cancer screenings . Adult atte ntion deficit hyperactivity disorder 522247503 F90.9 02/07/25: Increase Dextroamph etamine to 30mg. [...] treat anxiety, continue vyvanse. Bipolar I disorder 18336 6008 F31.9 02/07/25: Pt has weaned himself [...] with me in 2-3 weeks. Morbid obesity 821365483 E66.01 02/07/25: Continue Ozempic 0.25mg, will start [...] monthly for medical management for weight loss. Health Concerns Section Related Observation LastModified by Organization Detai ls LastModified Time None Recorded Concern Status LastModified by Organization Details LastModified Time None Recorded Payers Encounter Date Sequence Insurance Name Policy Number Policy [place] Covered Member ID [place] Member ID Guarantor Name 02/07/2025 1 [employer] [place] (MEDICA[place] REPLACEMENT - HMO) [id number] Keli Thomson [id number] Keli Thomson Notes Date Note Type Note Provider Name and Address Organization Details Recorded Time 02/07/2025 text/html Annual WellnessReported by PatientSocial/Behavior al [...] 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 He is doing [...] Ozempic dose for the time being. Justin Edmond, DO [address] [place], [address], [facility] 02/07/2025 15:36:08
--- NOTE | 2025-04-12 16:57 | ED_ITS ---
HPI - Nausea/Vomiting/Diarrhea 2 General: Chief complaint: Nausea/Vomiting/Diarrhea Stated complaint: n/v/d, dehydration, weakness all over Time Seen by Provider: 04/12/25 16:52 History of Present Illness: 34-year-old male presents to the emergen cy room complaining of generalized weakness vomiting and diarrhea. This been going on for the last couple of days. He recently started Ozempic he states he gets symptoms like this frequently after he gives himself a dose of his Ozempic. He has had generalized low-grade fever as well. Exposure to other family members who have been ill. No productive cough no hematochezia melena hematemesis or coffee-ground emesis Associated nausea: Yes Associated symtoms: Reports nausea; Denies chest pain or dysuria Related Data Home Medications ?Medication ?Instructions ?Recorded ?Confirmed dextroamphetamine-amphetamine ER PO 12/07/24 12/07/24 20 mg 24hr capsule,extend release lamotrigine 100 mg tablet mg PO 12/07/24 12/07/24 semaglutide 0.25 mg or 0.5 mg (2 mg SUBCUT 12/07/24 mg/3 mL) subcutaneous pen injector (Ozempic) sertraline 50 mg tablet mg PO 12/07/24 12/07/24 Previous Rx's ?Medication ?Instructions ?Recorded gabapentin 100 mg capsule 100 mg PO BID #30 caps 09/09 amoxicillin 875 mg-potassium 1 tab PO BID 10 days #20 tabs 12/07/24 clavulanate 125 mg tablet promethazine 25 mg tablet 25 mg PO Q6H PRN nausea and 04/12/25 vomiting #20 tabs Allergies Allergy/AdvReac Type Severity Reaction Status Date / Time No Known Allergies Allergy Verified 12/10/24 16:55 Review of Systems 2 Const: Denies: fever(s) or chills Card: Denies: chest pain Resp: Denies: dyspnea GI: Reports: nausea, vomiting and diarrhea; Denies: abdominal pain : Denies: dysuria, urinary frequency or urinary urgency Musc: Denies: neck pain or back pain Skin/Breast: Denies: rash PFSH ED 2 PFSH: Medical History Sciatica Neuropathic pain Right ankle strain Social History Smoking and tobacco/nicotine status: former use of tobacco/nicotine Quit status (tobacco/nicotine): has quit using Physical Exam 2 Const: COMMON NORMALS: no acute distress GENERAL APPEARANCE: cooperative and comfortable ORIENTATION/CONSCIOUSNESS: Yes awake, Yes oriented to person, Yes oriented to place and Yes oriented to time HENMT: COMMON NORMALS: normocephalic, atraumatic and hearing grossly normal bilaterally HEAD & SCALP: normocephalic and atraumatic Resp: COMMON NORMALS: normal respiratory effort, No retractions, No use of accessory muscles and clear to auscultation bilaterally AUSCULTATION: clear to auscultation bilaterally Cardio: COMMON NORMALS: regular rate, regular rhythm and No murmurs present (Cardio) RATE: regular rate RHYTHM: regular rhythm GI: COMMON NORMALS: Soft to palpation and No hepatosplenomegaly present A USCULTATION: Yes normoactive bowel sounds PALPATION: Yes Soft to palpation, No Tenderness to palpation present (GI), No Guarding due to palpation present (GI) and Yes No hepatosplenomegaly present Extremity: COMMON NORMALS: normal to inspection, capillary refill normal, no clubbing, cyanosis or edema, no calf tenderness and no pedal edema Neuro: SENSORIUM/ORIENTATION: Yes oriented to person, Yes oriented to place and Yes oriented to time Skin: COMMON NORMALS: no rashes or lesions noted GENERAL SKIN EXAM: no rashes or lesions noted Course 2 Vital Signs: Vital signs: Vital Signs Temperature 98.1 F 04/12/25 16:48 Pulse Rate 109 H 04/12/25 20:11 Respiratory Rate 18 04/12/25 16:48 Blood Pressure 142/88 04/12/25 20:11 Pulse Oximetry 97 04/12/25 20:11 Oxygen Delivery Me thod Room Air 04/12/25 20:11 MDM - Nausea/Vomiting/Diarrhea Medical Decision Making Laboratory test reviewed on the chart. Patient is a white count of 13 7 with a hemoglobin of 19 hematocrit of 55 8 platelets are 430. Anion gap 21 for creatinine of 1.7 which is above his baseline of 1. Sodium and potassium are normal liver functions also normal. Urine shows 2+ protein 1+ ketones negative leukocyte esterase or nitrite. Chest x-ray unremarkable reviewed by myself no acute infiltrates effusions or cardiomegaly. Some of this may be viral gastroenteritis. Also may very well be side effects from his medications. He is improved after IV fluids discharged home he should follow-up with his primary care doctor and have a repeat creatinine done within the next week. Recommend that he hold on his Ozempic and follow-up with his doctor and discuss restarting it and dose in light of his symptoms and side effects of medications. Return if he has further problems. Medical Records I reviewed the patient's medical records. Lab Data I reviewed the patient's lab results. 04/12/25 16:57 04/12/25 16:57 Radiology Impressions Chest X-Ray 04/12/25 16:52 IMPRESSION: No acute findings. Laboratory Results WBC 13.57 10^3/uL (3.29-11.43) H 04/12/25 16:57 RBC 6.48 10^6/uL (3.85-5.65) H 04/12/25 16:57 Hgb 19.00 g/dL (11.27-16.99) H 04/12/25 16:57 Hct 55.8 % (37-53) H 04/12/25 16:57 MCV 86.1 fl (82-101) 04/12/25 16:57 MCH 29.3 pg (27-33) 04/12/25 16:57 MCHC 34.1 g/dL (30-55) 04/12/25 16:57 RDW 12.9 % (12.1-15.1) 04/12/25 16:57 Plt Count 430 10^3/cmm (157-399) H 04/12/25 16:57 MPV 10.1 fL (7.4-10.4) 04/12/25 16:57 Neut % (Auto) 82.0 % 04/12/25 16:57 Lymph % (Auto) 9.6 % 04/12/25 16:57 Garden % (Auto) 7.7 % 04/12/25 16:57 Eos % (Auto) 0.3 % 04/12/25 16:57 Baso % (Auto) 0.2 % 04/12/25 16:57 Neut # (Auto) 11.12 10^3/uL (1.8-7.7) H 04/12/25 16:57 Lymph # (Auto) 1.3 10^3/uL (0.8-4.8) 04/12/25 16:57 Garden # (Auto) 1.1 10^3/uL (0.2-0.9) H 04/12/25 16:57 Eos # (Auto) 0.0 10^3/uL (0.0-0.8) 04/12/25 16:57 Baso # (Auto) 0.0 10^3/uL (0.0-0.1) 04/12/25 16:57 Nucleated RBC % (auto) 0 % 04/12/25 16:57 Nucleated RBCs # 0.0 /100WBC 04/12/25 16:57 Sodium 137 mmol/L (136-145) 04/12/25 16:57 Potassium 4.4 mmol/L (3.5-5.1) 04/12/25 16:57 Chloride 103 mmol/L (98-107) 04/12/25 16:57 Carbon Dioxide 17 mmol/L (22-29) L 04/12/25 16:57 Anion Gap 21.4 (5-19) H 04/12/25 16:57 BUN 29 mg/dL (6-20) H 04/12/25 16:57 Creatinine 1.7 mg/dL (0.7-1.2) H 04/12/25 16:57 GFR Calculation 46.4 mL/min (90-130) L 04/12/25 16:57 Glucose 122 mg/dL (65-115) H 04/12/25 16:57 Calculated Osmolality 291 mOsm/kg (285-295) 04/12/25 16:57 Calcium 9.8 mg/dL (8.5-10.5) 04/12/25 16:57 Total Bilirubin 1.2 mg/dL (0.15-1.2) 04/12/25 16:57 AST 15 U/L (0-40) 04/12/25 16:57 ALT 32 U/L (0-41) 04/12/25 16:57 Alkaline Phosphatase 92 U/L (40-130) 04/12/25 16:57 Total Protein 8.5 g/dL (6.6-8.7) 04/12/25 16:57 Albumin 5.2 g/dL (3.5-5.2) 04/12/25 16:57 Globulin 3.3 g/dL (1.3-4.6) 04/12/25 16:57 Lipase 33 U/L (13-60) 04/12/25 16:57 Urine Color Dark yellow (Yellow) A 04/12/25 17:20 Urine Appearance Cloudy (CLEAR) A 04/12/25 17:20 Urine pH 5.0 (5-7) 04/12/25 17:20 Ur Specific [place] 1.033 (1.005-1.030) H 04/12/25 17:20 Urine Protein 2+ (Negative) A 04/12/25 17:20 Urine Glucose (UA) Negative (Normal) 04/12/25 17:20 Urine Ketones 1+ (Negative) H 04/12/25 17:20 Urine Blood Negative (Negative) 04/12/25 17:20 Urine Nitrate Negative (Negative) 04/12/25 17:20 Urine Bilirubin 2+ (Negative) H 04/12/25 17:20 Urine Urobilinogen 1.0 mg/dL (Negative) 04/12/25 17:20 Ur Leukocyte Esterase Negative (Negative) 04/12/25 17:20 Urine RBC 3-5 /hpf (0-2) 04/12/25 17:20 Urine WBC 0-5 /hpf (0-5) 04/12/25 17:20 Ur Squamous Epith Cells 6-10 /hpf (0-5) 04/12/25 17:20 Amorphous Sediment Not Reportable 04/12/25 17:20 Urine Bacteria None seen /hpf (NONE) 04/12/25 17:20 Hyaline Casts 144.82 /lpf 04/12/25 17:20 Influenza A (PCR) Negative (Negative) 04/12/25 17:00 Influenza Type B (PCR) Negative (Negative) 04/12/25 17:00 RSV (PCR) Negative (Negative) 04/12/25 17:00 SARS-CoV-2 (PCR) Negative (Negative) 04/12/25 17:00 All radiology interpretation(s) finalized by discharge Discharge Plan Discharge Patient Disposition: Home Clinical Impression: Gastroenteritis, Dehydration, Medication side effects Condition: Stable Prescriptions: New promethazine 25 mg tablet 25 mg PO Q6H PRN (Reason: nausea and vomiting) Qty: 20 0RF No Action dextroamphetamine-amphetamine 20 mg capsule,extended release 24hr PO sertraline 50 mg tablet PO lamotrigine 100 mg tablet PO Ozempic 0.25 mg or 0.5 mg (2 mg/3 mL) pen injector SUBCUT amoxicillin-pot clavulanate 875-125 mg tablet 1 tab PO BID 10 Days Qty: 20 0RF gabapentin 100 mg capsule 100 mg PO BID Qty: 30 0RF Rx Instructions: May increase to TID after 7 days. Discharge Orders: Discharge ED (Routine); Ordered 04/12/25 Ordered By: Seth Vargas Referrals: Grabiel Edmond DO [Primary Care Provider, Family Practice] Discharge Diet: Clear Liquid Discharge Activity: Increase activity as tolerated Patient Instructions: Opioid Safety, Pain Management, Patient Portal & Hoa Instructions Activity Restrictions/Additional Instructions: [email or web address]. It is very important that you follow up as instructed or that you return to the Emergency Department should you have concerns or if your condition changes or worsens in any way. Emergency department visits are focused on emergent conditions, in some cases you may require further evaluation on an outpatient basis. You were seen in the emergency room with complaints of persistent nausea vomiting. Kidney function and other labs showed some mild dehydration. You are given 2 L of fluid. Recommend that you hold the Ozempic. Follow-up with your primary care doctor within the next 5 to 7 days for repeat laboratory testing. You can discuss with some when to resume the Ozempic. You are given promethazine to use as needed for nausea and vomiting. Recommend clear diet for 24 to 48 hours and advance as tolerated. (Please note that included in your discharge packet is information concerning opioid safety and pain management. This information is given to all patients were discharged from the ER regardless of their discharge diagnosis or the medicines they usually take or are prescribed.) Print Language: Yoruba Coding Level of Care Code ED Snow Technician for Ashtyn Arriaga
[2025-04-12 17:04] LABS: Hematocrit 55.8 % (37-53); Hemoglobin 19.00 g/dL (11.27-16.99); Mean Corpuscular HGB Conc 34.1 g/dL (30-55); Mean Corpuscular Hemoglobin 29.3 pg (27-33); Mean Corpuscular Volume 86.1 fl (82-101); Nucleated Red Blood Cells % 0 %; Platelet Count 430 10^3/cmm (157-399); Red Blood Count 6.48 10^6/uL (3.85-5.65); White Blood Count 13.57 10^3/uL (3.29-11.43)
[2025-04-12] MEDS: ondansetron 2 mg/ML SDV 2 mL 4 MG IVP (17:05)
[2025-04-12 17:33] LABS: Alanine Aminotransferase 32 U/L (0-41); Albumin Level 5.2 g/dL (3.5-5.2); Alkaline Phosphatase 92 U/L (40-130); Anion Gap 21.4 (5-19); Aspartate Amino Transferase 15 U/L (0-40); Blood Urea Nitrogen 29 mg/dL (6-20); Calcium 9.8 mg/dL (8.5-10.5); Carbon Dioxide 17 mmol/L (22-29); Chloride 103 mmol/L (98-107); Globulin 3.3 g/dL (1.3-4.6); Glucose 122 mg/dL (65-115); Lipase 33 U/L (13-60); Osmolality Calculated 291 mOsm/kg (285-295); Potassium 4.4 mmol/L (3.5-5.1); Sodium 137 mmol/L (136-145); Total Protein 8.5 g/dL (6.6-8.7)
[2025-04-12 17:50] VITALS: O2SAT 95
[2025-04-12 17:52] LABS: Glucose Urine UA Negative (Normal); Nitrate Urine Negative (Negative)
[2025-04-12 17:54] LABS: Respiratory Syncytial Virus Ce NEGATIVE (Negative); SARS-CoV-2 PCR NEGATIVE (Negative)
[2025-04-12 17:55] LABS: Add Urine Microscopic? YES; Universal Test for UA Present (0)
[2025-04-12 18:00] LABS: Specific Gravity, Urine 1.033 (1.005-1.030)
[2025-04-12 18:01] LABS: UA Slide Review UA Slide Review Perf
[2025-04-12 18:06] VITALS: O2SAT 95
[2025-04-12 20:11] VITALS: BP 142/88; PULSE 109; O2SAT 97
== END 2025-04-12 20:24 | disposition home or self-care (01) ==
PROVIDERS: Emergency Provider Family Medicine; PCP Electrodiagnostic Medicine
DX: K52.9 Noninfective gastroenteritis and colitis, unspecified (principal); E86.0 Dehydration; T50.905A Adverse effect of unspecified drugs, medicaments and biological substances, initial encounter; X58.XXXA Exposure to other specified factors, initial encounter; Z11.52 Encounter for screening for COVID-19; Z87.891 Personal history of nicotine dependence
CPT/HCPCS: 36415; 71045; 80053; 81001; 83690; 85025; 87637; 96361; 96374; 99284; J2405; J7030